=== PATIENT | female | born 1960 | race Caucasian/White ===

== ENCOUNTER → 2016-07-18 | Outpatient (CLI) | payer BC ==
--- NOTE | 2016-07-18 09:49 | CT ---
EXAMINATION TYPE: CT sinus wo con DATE OF EXAM: 07/18/2016 9:36 AM COMPARISON: NONE HISTORY: Patient has had sinus pressure for years CT DLP: 575.[address] of the paranasal sinuses was performed in the axial and coronal planes. Bone and soft tissue settings are submitted. The paranasal sinuses demonstrate normal aeration and development. The paranasal sinuses are free of air fluid level. Mild mucoperiosteal thickening involving maxilla ry sinuses. The osteal meatal units are patent bilaterally. The nasal septum is midline. No bony destructive changes are seen within the field of view. IMPRESSION: Mild mucoperiosteal thickening involving maxillary sinuses.
== END | disposition home or self-care (01) ==
LOC: RADCTMAIN 09:19
PROVIDERS: ATTEND Otolaryngology
DX: J34.89 Other specified disorders of nose and nasal sinuses (principal); J32.9 Chronic sinusitis, unspecified
CPT/HCPCS: 70486

== ENCOUNTER → 2016-07-25 | Outpatient (CLI) | payer BC | END | disposition home or self-care (01) | LOC: LABWHC1 10:07 | PROVIDERS: ATTEND Otolaryngology | DX: J30.9 Allergic rhinitis, unspecified (principal) | CPT/HCPCS: 36415 ==

== ENCOUNTER → 2017-07-24 | Outpatient (CLI) | payer BC ==
--- NOTE | 2017-07-25 08:34 | MM ---
Reason for exam: screening (asymptomatic). Last mammogram was performed 2 years and 2 months ago. History: Patient is postmenopausal. Family history of breast cancer in maternal grandmother. Took estrogen for 1 year 6 months beginning at age 33. Physical Findings: A clinical breast exam by your physician is recommended on an annual basis and results should be correlated with mammographic findings. MG Screening Mammo w CAD Bilateral CC and MLO view(s) were taken. Prior study comparison: June 08, 2015, bilateral MG screening mammo w CAD. January 08, 2012, [facility] DIGITAL RIGHT MAMMOGRAM w/CAD. The breast tissue is heterogeneously dense. This may lower the sensitivity of mammography. No significant changes when compared with prior studies. ASSESSMENT: Benign, BI-RAD 2 RECOMMENDATION: Routine screening mammogram of both breasts in 1 year.
== END | disposition home or self-care (01) ==
LOC: RADMAMWWP 14:51
PROVIDERS: ATTEND Family Medicine
DX: Z12.31 Encounter for screening mammogram for malignant neoplasm of breast (principal)
CPT/HCPCS: 77067

== ENCOUNTER 2018-08-14 20:38 | Observation (INO) | payer BC ==
[2018-08-14 21:40] LABS: Basophils # (A) 0.1 k/uL (0-0.2); Basophils % (A) 1 %; Eosinophils # (A) 0.3 k/uL (0-0.7); Eosinophils % (A) 3 %; HCT 43.8 % (34.0-46.0); HGB 14.8 gm/dL (11.4-16.0); Lymphocytes # (A) 4.3 k/uL (1.0-4.8); Lymphocytes % (A) 43 %; MCH 29.4 pg (25.0-35.0); MCHC 33.7 g/dL (31.0-37.0); MCV 87.2 fL (80.0-100.0); Monocytes # (A) 0.5 k/uL (0-1.0); Monocytes % (A) 5 %; Neutrophils # (A) 4.5 k/uL (1.3-7.7); Neutrophils % (A) 45 %; Platelet Count 260 k/uL (150-450); RBC 5.03 m/uL (3.80-5.40); RDW 14.6 % (11.5-15.5); WBC 9.9 k/uL (3.8-10.6)
--- NOTE | 2018-08-14 21:42 | ED ---
General Adult HPI - General Chief complaint: Chest Pain Stated complaint: Chest pain Time Seen by Provider: 08/14/18 20:50 Source: patient Mode of arrival: ambulatory Limitations: no limitations - History of Present Illness Initial comments: Dictation was produced using [employer] dictation software. please excuse any grammatical, word or spelling errors. Chief Complaint: 58-year-old female past medical history dyslipidemia, arthritis and sleep apnea presents with chest pain. History of Present Illness: 58-year-old female presents with chest pain 3 hours. She states she's had symptoms since yesterday. Reports that the pain is a pressure-like sensation over her sternum with radiation down to her left shoulder. Patient denies any cardiac history. Denies ever seeing visual presentation manager in the past. Denies any history of coronary disease. Patient was at dinner and was convinced by her daughter to come to the emergency department for medical evaluation. Patient reports having family history of cardiac disease. Eyes any cough. Patient otherwise has been feeling normal. Denies any exacerbating or mitigating factors. No associated nausea or vomiting. No diaphoresis. The ROS documented in this emergency department record has been reviewed and confirmed by me. Those systems with pertinent positive or negative responses have been documented in the HPI. All other systems are other negative and/or noncontributory. PHYSICAL EXAM: General Impression: Alert and oriented x3, not in acute distress HEENT: Normocephalic atraumatic, extra-ocular movements intact, pupils equal and reactive to light bilaterally, mucous membranes moist. Cardiovascular: Heart regular rate and rhythm, S1&S2 audible, no murmurs, rubs or gallops Chest: Lungs clear to auscultation bilaterally, no rhonchi, no wheeze, no rales Abdomen: Bowel sounds present, abdomen soft, non-tender, non-distended, no organomegaly Musculoskeletal: Pulses present and equal in all extremities, no peripheral edema Motor: no focal deficits noted Neurological: CN II-XII grossly intact, no focal motor or sensory deficits noted Skin: Intact with no visualized rashes Psych: Normal affect and mood ED course: 58-year-old female presents with atypical chest pain with typical features. Upon arrival shows blood pressure 180/85, rest of vital signs within normal limits. Given patient's age and HPI there is concern for cardiac process. Chest pain wo rkup was performed. Laboratory evaluation obtained. CBC, coag panel is unremarkable. Metabolic panel is negative. Cardiac enzymes negative. Chest x- ray shows no acute processes. Patient given aspirin. Patient reevaluated and found to be in stable medical condition. She does report minor chest pressure symptoms the last several seconds while in the emergency department. Patient to be admitted observation for serial troponins. Patient case discussed with Dr. Mustafa. EKG interpretation: Ventricular rate 70, normal sinus rhythm, WI interval 184, care is 100, QTC 455. No WI prolongation, no QTC prolongation, no ST or T-wave changes noted. - Related Data Home Medications Medication Instructions Recorded Confirmed Aspirin EC [Ecotrin Low Dose] 162 mg PO DAILY 08/14/18 08/14/18 Lisinopril [Zestril] 5 mg PO HS 08/14/18 08/14/18 Allergies Allergy/AdvReac Type Severity Reaction Status Date / Time morphine Allergy Rash/Hives, Verified 08/14/18 21:26 HALLUCINATIONS banana AdvReac Nausea & Verified 08/14/18 21:26 Vomiting Review of Systems ROS Statement: Those systems with pertinent positive or pertinent negative responses have been documented in the HPI. ROS Other: All systems not noted in ROS Statement are negative. Past Medical History Past Medical History: Hyperlipidemia, Osteoarthritis (OA), Sleep Apnea/CPAP/BIPAP Additional Past Medical History / Comment(s): 06/15/14 Pt admitted to floor s/p Total R knee. Other HX: RECENT HTN RX PRESCRIBED, PLANS TO START AFTER SURG. USES C-PAP. History of Any Multi-Drug Resistant Organisms: None Reported Past Surgical History: Cholecystectomy, Hysterectomy, Joint Replacement, Orthopedic Surgery, Tonsillectomy, Tubal Ligation Additional Past Surgical History / Comment(s): 06/15/14 Total R knee arthroplasty. SETH SCOPE OF KNEES; SETH THUMB SURG; NASAL/SINUS SURG; RECONSTRUCTION RT KNEE Past Anesthesia/Blood Transfusion Reactions: Postoperative Nausea & Vomiting (PONV) Past Psychological History: No Psychological Hx Reported Smoking Status: Never smoker Past Alcohol Use History: Rare Past Drug Use History: None Reported - Past Family History Father Family Medical History: Cancer General Exam Limitations: no limitations Course Vital Signs 08/14/18 08/14/18 20:39 22:00 Temperature 98.0 F Pulse Rate 74 63 Respiratory 18 16 Rate Blood Pressure 180/85 150/83 O2 Sat by Pulse 98 97 Oximetry Medical Decision Making - Lab Data Result diagrams: 08/14/18 21:06 08/14/18 21:06 Lab Results 08/14/18 08/14/18 08/14/18 Range/Units 21:06 21:06 21:06 WBC 9.9 (3.8-10.6) k/uL RBC 5.03 (3.80-5.40) m/uL Hgb 14.8 (11.4-16.0) gm/dL Hct 43.8 (34.0-46.0) % MCV 87.2 (80.0-100.0) fL MCH 29.4 (25.0-35.0) pg MCHC 33.7 (31.0-37.0) g/dL RDW 14.6 (11.5-15.5) % Plt Count 260 (150-450) k/uL Neutrophils % 45 % Lymphocytes % 43 % Monocytes % 5 % Eosinophils % 3 % Basophils % 1 % Neutrophils # 4.5 (1.3-7.7) k/uL Lymphocytes # 4.3 (1.0-4.8) k/uL Monocytes # 0.5 (0-1.0) k/uL Eosinophils # 0.3 (0-0.7) k/uL Basophils # 0.1 (0-0.2) k/uL PT 9.8 (9.0-12.0) sec INR 0.9 (<1.2) APTT 23.0 (22.0-30.0) sec Sodium 140 (137-145) mmol/L Potassium 4.0 (3.5-5.1) mmol/L Chloride 105 (98-107) mmol/L Carbon Dioxide 24 (22-30) mmol/L Anion Gap 11 mmol/L BUN 13 (7-17) mg/dL Creatinine 0.66 (0.52-1.04) mg/dL Est GFR (CKD-EPI)AfAm >90 (>60 ml/min/1.73 sqM) Est GFR (CKD-EPI)NonAf >90 (>60 ml/min/1.73 sqM) Glucose 105 H (74-99) mg/dL Calcium 9.7 (8.4-10.2) mg/dL Magnesium 1.9 (1.6-2.3) mg/dL Total Bilirubin 0.5 (0.2-1.3) mg/dL AST 19 (14-36) U/L ALT 19 (9-52) U/L Alkaline Phosphatase 101 (38-126) U/L Troponin I (0.000-0.034) ng/mL Total Protein 7.7 (6.3-8.2) g/dL Albumin 4.7 (3.5-5.0) g/dL 08/14/18 Range/Units 21:06 WBC (3.8-10.6) k/uL RBC (3.80-5.40) m/uL Hgb (11.4-16.0) gm/dL Hct (34.0-46.0) % MCV (80.0-100.0) fL MCH (25.0-35.0) pg MCHC (31.0-37.0) g/dL RDW (11.5-15.5) % Plt Count (150-450) k/uL Neutrophils % % Lymphocytes % % Monocytes % % Eosinophils % % Basophils % % Neutrophils # (1.3-7.7) k/uL Lymphocytes # (1.0-4.8) k/uL Monocytes # (0-1.0) k/uL Eosinophils # (0-0.7) k/uL Basophils # (0-0.2) k/uL PT (9.0-12.0) sec INR (<1.2) APTT (22.0-30.0) sec Sodium (137-145) mmol/L Potassium (3.5-5.1) mmol/L Chloride (98-107) mmol/L Carbon Dioxide (22-30) mmol/L Anion Gap mmol/L BUN (7-17) mg/dL Creatinine (0.52-1.04) mg/dL Est GFR (CKD-EPI)AfAm (>60 ml/min/1.73 sqM) Est GFR (CKD-EPI)NonAf (>60 ml/min/1.73 sqM) Glucose (74-99) mg/dL Calcium (8.4-10.2) mg/dL Magnesium (1.6-2.3) mg/dL Total Bilirubin (0.2-1.3) mg/dL AST (14-36) U/L ALT (9-52) U/L Alkaline Phosphatase (38-126) U/L Troponin I <0.012 (0.000-0.034) ng/mL Total Protein (6.3-8.2) g/dL Albumin (3.5-5.0) g/dL Disposition Clinical Impression: Chest pain Disposition: ADMITTED IP TO THIS HOSP Condition: Fair Referrals: Renato Mustafa MD [Primary Care Provider] - 1-2 days Decision Time: 23:31
--- NOTE | 2018-08-14 21:49 | XR ---
EXAMINATION TYPE: XR chest 2V DATE OF EXAM: 08/14/2018 COMPARISON: Chest x-ray May 27, 2014. HISTORY: Chest pain and shortness of breath today. TECHNIQUE: Frontal and lateral views of the chest are obtained. FINDINGS: There is chronic parenchymal change without suspicious new focal air space opacity, pleura l effusion, or pneumothorax seen. The cardiac silhouette size is stable and upper limits of normal. The osseous structures are intact. Overlying EKG leads are now seen. IMPRESSION: No acute cardiopulmonary process. No significant change from prior.
[2018-08-14 21:53] LABS: ALT 19 U/L (9-52); AST 19 U/L (14-36); Albumin 4.7 g/dL (3.5-5.0); Alkaline Phosphatase 101 U/L (38-126); Anion Gap 11 mmol/L; Blood Urea Nitrogen 13 mg/dL (7-17); Calcium 9.7 mg/dL (8.4-10.2); Carbon Dioxide 24 mmol/L (22-30); Chloride 105 mmol/L (98-107); Glucose 105 mg/dL (74-99); Magnesium 1.9 mg/dL (1.6-2.3); Sodium 140 mmol/L (137-145); Total Bilirubin 0.5 mg/dL (0.2-1.3); Total Protein 7.7 g/dL (6.3-8.2)
[2018-08-14 22:01] LABS: INR 0.9 (<1.2); Prothrombin Time 9.8 sec (9.0-12.0)
[2018-08-14] MEDS ORDERED: ASPIRIN 81 MG PO STA (23:30)
[2018-08-14] MEDS ORDERED: NITROGLYCERIN SL TABS 0.4 MG TAB SUBLINGUAL PRN (23:32)
[2018-08-15 03:33] LABS: Cholesterol 297 mg/dL (<200); HDL Cholesterol 60 mg/dL (40-60); LDL Cholesterol,Calculated 189 mg/dL (0-99); Triglycerides 240 mg/dL (<150)
--- NOTE | 2018-08-15 07:43 | P.HPIM ---
History of Present Illness H&P Date: 08/15/18 Chief Complaint: Sternal chest pain This is history and physical an 58-year-old white female with known history of hypertension who for the last several weeks has been complaining of substernal chest pain. This pain has become more frequent. No nausea vomiting or diaphoresis stated however there is worsening belching associated with pain. Because of the frequency and intensity, she was evaluated in the emergency room for appropriate admission to rule out myocardial infarction. She is a for many years and a nonsmoker. Review of Systems Constitutional: Denies chills, Denies fever Eyes: denies blurred vision, denies pain Ears, nose, mouth and throat: Denies headache, Denies sore throat Cardiovascular: Reports chest pain, Denies leg edema, Denies orthopnea, Denies paroxysmal nocturnal dyspnea, Denies rapid heart beat Respiratory: Denies cough Gastrointestinal: Denies abdominal pain, Denies diarrhea, Denies nausea, Denies vomiting Genitourinary: Denies dysuria, Denies hematuria Musculoskeletal: Denies myalgias Past Medical History Past Medical History: Hyperlipidemia, Hypertension, Osteoarthritis (OA), Sleep Apnea/CPAP/BIPAP Additional Past Medical History / Comment(s): Uses C-pap at home. History of Any Multi-Drug Resistant Organisms: None Reported Past Surgical History: Cholecystectomy, Hysterectomy, Joint Replacement, Orthopedic Surgery, Tonsillectomy, Tubal Ligation Additional Past Surgical History / Comment(s): Total R knee arthroplasty. SETH SCOPE OF KNEES; SETH THUMB SURG; NASAL/SINUS SURG; RECONSTRUCTION RT KNEE, sinus sx, total hysterectomy Past Anesthesia/Blood Transfusion Reactions: Postoperative Nausea & Vomiting (PONV) Past Psychological History: No Psychological Hx Reported Additional Psychological History / Comment(s): Pt lives independently. Does ADL's independently and drives herself. Smoking Status: Never smoker Past Alcohol Use History: Rare Past Drug Use History: None Reported - Past Family History Mother Family Medical History: CVA/TIA Additional Family Medical History / Comment(s): Mother of "mini-strokes in brain" Father Family Medical History: Cancer Medications and Allergies Home Medications Medication Instructions Recorded Confirmed Type Aspirin EC [Ecotrin Low Dose] 162 mg PO DAILY 08/14/18 08/14/18 History Lisinopril [Zestril] 5 mg PO HS 08/14/18 08/14/18 History Allergies Allergy/AdvReac Type Severity Reaction Status Date / Time morphine Allergy Rash/Hives, Verified 08/14/18 21:26 HALLUCINATIONS banana AdvReac Nausea & Verified 08/14/18 21:26 Vomiting Physical Exam Vitals: Vital Signs Temp Pulse Pulse Resp BP BP Pulse Ox 08/15/18 07:13 96 08/15/18 07:10 97.8 F 63 18 156/77 95 08/15/18 04:00 98.5 F 61 16 143/77 97 08/15/18 03:18 16 08/15/18 00:48 16 08/15/18 00:19 98.0 F 63 16 167/79 99 08/14/18 23:30 74 16 130/62 98 08/14/18 22:00 63 16 150/83 97 08/14/18 20:39 98.0 F 74 18 180/85 98 Intake and Output 08/14/18 08/15/18 08/15/18 22:59 06:59 14:59 Other: Voiding Method Toilet # Voids 1 Weight 104.326 kg - Constitutional General appearance: no acute distress - EENT Eyes: EOMI - Neck Neck: no lymphadenopathy - Respiratory Respiratory: bilateral: CTA - Cardiovascular Rhythm: regular Heart sounds: normal: S1, S2 Abnormal Heart Sounds: no S3 Gallop - Gastrointestinal General gastrointestinal: soft, no tenderness - Integumentary Integumentary: no cyanotic, normal - Neurologic Neurologic: CNII-XII intact - Psychiatric Psychiatric: A&O x's 3, appropriate affect, intact judgment & insight Results CBC & Chem 7: 08/14/18 21:06 08/14/18 21:06 Labs: Abnormal Lab Results - Last 24 Hours (Table) 08/14/18 08/15/18 Range/Units 21:06 02:52 Glucose 105 H (74-99) mg/dL Triglycerides 240 H (<150) mg/dL Cholesterol 297 H (<200) mg/dL LDL Cholesterol, Calc 189 H (0-99) mg/dL Thrombosis Risk Factor Assmnt - Choose All That Apply Any of the Below Risk Factors Present?: Yes Each Factor Represents 1 point: Age 41-60 years, Obesity (BMI >25) Other Risk Factors: No Thrombosis Risk Factor Assessment Total Risk Factor Score: 2 Thrombosis Risk Factor Assessment Level: Low Risk Assessment and Plan (1) Chest pain Current Visit: Yes Status: Acute Code(s): R07.9 - CHEST PAIN, UNSPECIFIED SNOMED Code(s): 86520614 (2) Osteoarthritis Current Visit: No Status: Acute Code(s): M19.90 - UNSPECIFIED OSTEOARTHRITIS, UNSPECIFIED SITE SNOMED Code(s): 486175547 (3) Hyperlipidemia Current Visit: Yes Status: Acute Code(s): E78.5 - HYPERLIPIDEMIA, UNSPECIFIE D SNOMED Code(s): 89261384 Plan: Rule out myocardial infraction. Stress test versus cardiac catheterization given her overall symptomatology. Reconcile home medications. Question need to start statin and heparin. Await cardiology consultation. Otherwise, the patient is a full code. Time with Patient: Greater than 30
[2018-08-15] MEDS ORDERED: ASPIRIN 325 MG TAB PO SCH ×2 (09:00→10:15)
[2018-08-15] MEDS ORDERED: ASPIRIN 81 MG PO SCH (09:00)
[2018-08-15] MEDS ORDERED: ALPRAZolam 0.25 MG TAB PO PRN (10:11)
[2018-08-15] MEDS ORDERED: SODIUM CHLORIDE 0.9% 1,000 ML in EMPTY BAG 1 BAG IV ONE (10:11)
[2018-08-15] MEDS ORDERED: ALPRAZolam 0.5 MG TAB PO PRN (10:11)
[2018-08-15] MEDS: LISINOPRIL 10 MG TAB PO SCH (10:37)
[2018-08-15] MEDS ORDERED: LIDOCAINE 1% INJ 10MG/ML (20 ML MDV) ONE ×3 (11:11→13:21)
[2018-08-15] MEDS ORDERED: IV FLUID CONTINUATION 1,000 ML IV ONE (11:30)
[2018-08-15] MEDS ORDERED: MIDAZOLAM (PF) 2 MG/2 ML VIAL IV ONE (11:36)
[2018-08-15] MEDS ORDERED: LIDOCAINE 1% INJ 10MG/ML (20 ML MDV) SQ ONE (11:38)
[2018-08-15] MEDS: LIDOCAINE 1% INJ 10MG/ML (20 ML MDV) SQ ONE ×2 (11:45→13:03)
[2018-08-15] MEDS ORDERED: fentaNYL (PF) 50 MCG/ML 2 ML AMP ONE (11:46)
[2018-08-15] MEDS ORDERED: fentaNYL (PF) 50 MCG/ML 2 ML AMP IV ONE (11:47)
[2018-08-15] MEDS ORDERED: NITROGLYCERIN 1000MCG/10ML SYRINGE INTRACORON ONE (11:48)
--- NOTE | 2018-08-15 12:12 | P.CRDCN ---
History of Present Illness History of present illness: This is a pleasant 58-year-old female past medical history significant for hypertension, dyslipidemia, obstructive sleep apnea and obesity. 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 If necessary consultation secondary to chest discomfort. She has been feeling a tightness across her chest and upper anterior region from left to right side described as a band around her chest with some radiation to the left shoulder and left upper arm. Her symptoms been going off-and-on for the previous couple of weeks however have been increasing in frequency and intensity over the last couple of days. Specifically yesterday she felt the discomfort in her chest while she was walking out to feed her chickens and exerting herself. The symptoms would subside with rest and intensify with exertion. She denies associated shortness of breath, dizziness, nausea, vomiting, diaphoresis or palpitations. She is seen and examined resting comfortably in bed in no acute distress. She is currently chest pain-free. She states she has tried multiple different statins in the past for cholesterol management has been intolerant secondary to significant body and muscle aches. She also has noticed her blood pressures have been elevated at home. EKG reveals sinus mechanism with no acute ST or T wave abnormalities noted. Left axis deviation. Chest x-ray is negative for an acute cardiopulmonary process. Laboratory data reviewed, WBC 9.9, hemoglobin 14.8, platelets 260, sodium 140, potassium 4.0, creatinine 0.66, GFR greater than 90, magnesium 1.9, cardiac enzymes negative 3, LDL 189, HDL 60, triglycerides 240 and total cholesterol 297. Current cardiac medications include lisinopril 5 mg daily and aspirin 162 mg daily. At the time of my exam: CONSTITUTIONAL: Denies fever. Denies chills. EYES: Denies blurred vision. Denies vision changes. Denies eye pain. EARS, NOSE, MOUTH & THROAT: Denies headache. Denies sore throat. Denies ear pain. CARDIOVASCULAR: Denies chest pain. Denies shortness of breath. Denies orthopnea. Denies PND. Denies palpitations. RESPIRATORY: Denies cough. GASTROINTESTINAL: Denies abdominal pain. Denies diarrhea. Denies constipation. Denies nausea. Denies vomiting. MUSCULOSKELETAL: Denies myalgias. INTEGUMENTARY: Denies pruitis. Denies rash. NEUROLOGIC: Denies numbness. Denies tingling. Denies weakness. PSYCHIATRIC: Denies anxiety. Denies depression. ENDOCRINE: Denies fatigue. Denies weight change. Denies polydipsia. Denies polyurina. GENITOURINARY: Denies burning, hematuria or urgency with micturation. HEMATOLOGIC: Denies history of anemia. Denies bleeding. Blood pressure 156/77 heart rate 63 afebrile maintaining oxygen saturation on room air GENERAL: This is a 58-year-old female in no apparent distress at the time of my examination. Obese. HEENT: Head is atraumatic, normocephalic. Pupils are equal, round. Sclerae anicteric. Conjunctivae are clear. Mucous membranes of the mouth are moist. Neck is supple. There is no jugular venous distention. No carotid bruit is heard. LUNGS: Clear to auscultation no wheezes, rales or rhonchi. No chest wall tenderness is noted on palpation or with deep breathing. HEART: Regular rate and rhythm without murmurs, rubs or gallops. S1 and S2 heard. ABDOMEN: Soft, nontender. Bowel sounds are heard. No organomegaly noted. EXTREMITIES: No evidence of peripheral edema and no calf tenderness noted. VASCULAR: Radial and dorsalis pedis pulses palpated, no evidence of clubbing. NEUROLOGIC: Patient is awake, alert and oriented x3. ASSESSMENT Unstable angina Hypertension, uncontrolled Dyslipidemia, uncontrolled Sleep apnea and uses CPAP at home Obesity, BMI 36 PLAN Recommend proceeding with cardiac catheterization to assess for obstructive coronary artery disease. I have discussed the risks, benefits and alternative therapies for the above-mentioned procedure and for both sedation/analgesia as well as necessary blood product administration, if indicated, as they pertain to this patient. The patient has indicated understanding and acceptance of the risks and procedures discussed. Questions have been answered appropriately and she is agreeable to move forward with the above stated procedure. Lengthy discussion had with the patient regarding optimal cholesterol management. She is a candidate for [facility] laboratory data suggestive of heterozygous familial hypercholesterolemia. Increase lisinopril to 10 mg daily. Obtain 2-D echocardiogram and Doppler study to assess cardiac structure and function. Further recommendations to follow based upon clinical course. Thank you kindly for this consultation. Nurse Practitioner note has been reviewed, I agree with a documented findings and plan of care. Patient was seen and examined. Past Medical History Past Medical History: Hyperlipidemia, Hypertension, Osteoarthritis (OA), Sleep Apnea/CPAP/BIPAP Additional Past Medical History / Comment(s): Uses C-pap at home. History of Any Multi-Drug Resistant Organisms: None Reported Past Surgical History: Cholecystectomy, Hysterectomy, Joint Replacement, Orthopedic Surgery, Tonsillectomy, Tubal Ligation Additional Past Surgical History / Comment(s): Total R knee arthroplasty. SETH SCOPE OF KNEES; SETH THUMB SURG; NASAL/SINUS SURG; RECONSTRUCTION RT KNEE, sinus sx, total hysterectomy Past Anesthesia/Blood Transfusion Reactions: Postoperative Nausea & Vomiting (PONV) Past Psychological History: No Psychological Hx Reported Additional Psychological History / Comment(s): Pt lives independently. Does ADL's independently and drives herself. Smoking Status: Never smoker Past Alcohol Use History: Rare Past Drug Use History: None Reported - Past Family History Mother Family Medical History: CVA/TIA Additional Family Medical History / Comment(s): Mother of "mini-strokes in brain" Father Family Medical History: Cancer Medications and Allergies Home Medications Medication Instructions Recorded Confirmed Type Aspirin EC [Ecotrin Low Dose] 162 mg PO DAILY 08/14/18 08/14/18 History Lisinopril [Zestril] 5 mg PO HS 08/14/18 08/14/18 History Allergies Allergy/AdvReac Type Severity Reaction Status Date / Time morphine Allergy Rash/Hives, Verified 08/14/18 21:26 HALLUCINATIONS banana AdvReac Nausea & Verified 08/14/18 21:26 Vomiting Physical Exam Vitals: Vital Signs Temp Pulse Pulse Resp BP BP Pulse Ox 08/15/18 07:13 96 08/15/18 07:10 97.8 F 63 18 156/77 95 08/15/18 04:00 98.5 F 61 16 143/77 97 08/15/18 03:18 16 08/15/18 00:48 16 08/15/18 00:19 98.0 F 63 16 167/79 99 08/14/18 23:30 74 16 130/62 98 08/14/18 22:00 63 16 150/83 97 08/14/18 20:39 98.0 F 74 18 180/85 98 Intake and Output 08/14/18 08/15/18 08/15/18 22:59 06:59 14:59 Other: Voiding Method Toilet Toilet # Voids 1 1 Weight 104.326 kg Results 08/14/18 21:06 08/14/18 21:06 Cardiac Enzymes 08/14/18 08/14/18 08/15/18 Range/Units 21:06 21:06 02:52 AST 19 (14-36) U/L Troponin I <0.012 <0.012 (0.000-0.034) ng/mL 08/15/18 Range/Units 08:55 AST (14-36) U/L Troponin I <0.012 (0.000-0.034) ng/mL Coagulation 08/14/18 Range/Units 21:06 PT 9.8 (9.0-12.0) sec APTT 23.0 (22.0-30.0) sec Lipids 08/15/18 Range/Units 02:52 Triglycerides 240 H (<150) mg/dL Cholesterol 297 H (<200) mg/dL HDL Cholesterol 60 (40-60) mg/dL CBC 08/14/18 Range/Units 21:06 WBC 9.9 (3.8-10.6) k/uL RBC 5.03 (3.80-5.40) m/uL Hgb 14.8 (11.4-16.0) gm/dL Hct 43.8 (34.0-46.0) % Plt Count 260 (150-450) k/uL Comprehensive Metabolic Panel 08/14/18 Range/Units 21:06 Sodium 140 (137-145) mmol/L Potassium 4.0 (3.5-5.1) mmol/L Chloride 105 (98-107) mmol/L Carbon Dioxide 24 (22-30) mmol/L BUN 13 (7-17) mg/dL Creatinine 0.66 (0.52-1.04) mg/dL Glucose 105 H (74-99) mg/dL Calcium 9.7 (8.4-10.2) mg/dL AST 19 (14-36) U/L ALT 19 (9-52) U/L Alkaline Phosphatase 101 (38-126) U/L Total Protein 7.7 (6.3-8.2) g/dL Albumin 4.7 (3.5-5.0) g/dL Current Medications Generic Name Dose Route Start Last Admin Trade Name Freq PRN Reason Stop Dose Admin Alprazolam 0.25 mg 08/15/18 10:11 Xanax PO Q6HR PRN Mild Anxiety Alprazolam 0.5 mg 08/15/18 10:11 Xanax PO Q6HR PRN Moderate Anxiety Aspirin 325 mg 08/15/18 10:15 08/15/18 10:37 Aspirin PO 325 mg DAILY VÍCTOR Administration Sodium Chloride 1,000 ml/ IV 1,000 mls @ 104.326 mls/hr 08/15/18 10:11 08/15/18 10:37 Solution IV 08/15/18 19:46 104.326 mls/hr .Q9H36M ONE Administration 1 ML/KG/HR Lisinopril 10 mg 08/15/18 09:00 08/15/18 10:37 Zestril PO 10 mg DAILY VÍCTOR Administration Nitroglycerin 0.4 mg 08/14/18 23:32 Nitrostat SUBLINGUAL Q5M PRN Chest Pain Intake and Output 08/14/18 08/15/18 08/15/18 22:59 06:59 14:59 Other: Voiding Method Toilet Toilet # Voids 1 1 Weight 104.326 kg 08/14/18 21:06 08/14/18 21:06
[2018-08-15] MEDS ORDERED: PRASUGREL 10 MG TAB ONE (12:25)
[2018-08-15] MEDS ORDERED: PRASUGREL 10 MG TAB PO ONE (12:27)
[2018-08-15] MEDS ORDERED: BIVALIRUDIN BOLUS 250 MG/50 ML IV ONE (12:27)
[2018-08-15] MEDS ORDERED: BIVALIRUDIN 250 MG in SODIUM CHLORIDE 0.9% 50 ML IV ONE ×2 (12:28→13:09)
[2018-08-15] MEDS ORDERED: IOPAMIDOL-370 125ML BTL INJ ONE (12:31)
[2018-08-15] MEDS: NITROGLYCERIN 1000MCG/10ML SYRINGE INTRACORON ONE ×2 (12:49→13:14)
[2018-08-15] MEDS ORDERED: IOPAMIDOL-370 100ML BTL INJ ONE ×3 (13:00→13:23)
[2018-08-15] MEDS ORDERED: LIDOCAINE 1% INJ 10MG/ML (10 ML MDV) SQ ONE (13:22)
[2018-08-15] MEDS ORDERED: ZOLPIDEM 5 MG TAB PO PRN (13:45)
[2018-08-15] MEDS ORDERED: NITROGLYCERIN SL TABS 0.4 MG TAB SUBLINGUAL PRN (13:45)
[2018-08-15] MEDS ORDERED: RX INFO: IV CONTRAST WAS GIVEN 1 EACH MISC MISCELLANE PRN (13:45)
[2018-08-15] MEDS ORDERED: MAG HYDROX/AL HYDROX/SIMETH 30 ML CUP PO PRN (13:45)
[2018-08-15] MEDS ORDERED: ATROPINE SULFATE 0.1 MG/ML 10ML SYRINGE IV PRN (13:45)
[2018-08-15] MEDS ORDERED: SODIUM CHLORIDE 0.9% 1,000 ML IV SCH (13:45)
[2018-08-15 15:14] VITALS: RESP 16
--- NOTE | 2018-08-15 15:31 | CC ---
CARDIAC CATHETERIZATION REPORT Mrs Sheriff is a 58-year-old female who was admitted to the hospital with a complaint of increasing chest discomfort with minimal activities over the last 2 weeks and the pain was getting worse. She came to the emergency room and subsequently was admitted. Initial EKG was normal. Second EKG showed mild T-wave inversions in V1 and V2. Cardiac enzymes are normal. The patient had a significantly elevated lipids with LDL level of 189. In view of the very classical history suggestive of angina, patient was recommended to have a cardiac catheterization for definitive diagnosis. PROCEDURE: The right groin was prepped and draped in the usual manner and the skin was infiltrated with 2% Xylocaine. The right femoral artery was entered using Seldinger technique. A #6-Japanese sheath was placed in. Selective coronary angiography was then performed in multiple projections. Left ventricular pressures were obtained. The patient tolerated the procedure well. Total sedation time was 22 minutes. MMODL / IJN: [id number] /
--- NOTE | 2018-08-15 16:31 | CC ---
CARDIAC CATHETERIZATION REPORT ADDENDUM (CONTINUATION) OF CARDIAC CATHETERIZATION: Left ventricular pressures were obtained. The left ventricular end-diastolic pressure was 8-12 mmHg prior to angiography. No gradient is noted across the aortic valve. Left main coronary artery is normal and patent. LAD is a good-caliber blood vessel and the proximal LAD has a 99% stenosis after the origin of the diagonal branch. The mid LAD has another area of 90% stenosis. The diagonal branch itself is a good-caliber blood vessel that has 80% stenosis. Circumflex coronary artery is a good-caliber blood vessel. After the origin of the obtuse marginal branch, circumflex coronary artery has a 90% stenosis. The right coronary artery has mild disease in its proximal portion of about 30% to 40% stenosis. RECOMMENDATIONS: Films were reviewed with Dr. Molina. In view of the significant coronary artery disease, we will consider stent to the LAD, diagonal and obtuse marginal branches. MMODL / IJN: [id number] /
[2018-08-15] MEDS: EZETIMIBE 10 MG TAB PO SCH (17:23)
--- NOTE | 2018-08-15 19:58 | PTCA ---
PERCUTANEOUSTRANS CORORONARY ANGIOGRAPHY Mrs. Sheriff is a 58-year-old female known history of hypertension who presented with symptoms of unstable angina with EKG changes. She underwent cardiac catheterization by Dr. Dotson and was found to have critical stenosis involving the proximal LAD, mid LAD, 1st diagonal branch as well as the left circumflex. Recommendation was made regarding coronary angioplasty and stenting. The procedure as well as risks and complications were discussed with the patient who is in full understanding and agreement. PROCEDURE: A 6-Fijian FR4 guiding catheter was introduced into the system after cannulating the left main, a 0.014 balanced medium weight J-wire was advanced in position in the first diagonal branch. Subsequently another 0.014 balanced medium weight J-wire was advanced and positioned in the distal LAD. Subsequently a 2.5 x 12 mm Trek balloon was advanced and inflation in mid and proximal LAD was performed and subsequently the balloon was removed and a 2.75 x 18 mm Xience Cleopatra stent was deployed in the diagonal branch and postdilated at 16 atmospheres. Following that, the balloon was removed and a 2.5 x 18 mm Xience Cleopatra stent was advanced in the mid LAD and deployed and post dilated at 16 atmospheres. Following that, the balloon was removed and a 3.5 x 50 mm Xience Cleopatra stent was deployed in the proximal LAD and postdilated at 14 atmospheres. Following that, the balloon was removed and a 2.75 x 12 mm Xience Cleopatra was stent was deployed and in between the 2 stents of the LAD and was dilated at 16 atmospheres. After appropriate wait, the balloon was withdrawn back in the guiding catheter. Images were obtained, repeated. Those images reveal stable successful stenting. At that point, one of the BMW J-wire were was advanced into the left circumflex and positioned distally. Subsequently a 2.5 x 12 mm balloon trek was advanced and one inflation at 8 atmospheres was done. Following that, the balloon was removed and a 2.75 x 18 mm Xience Cleopatra stent was deployed. It was dilated at 16 atmospheres. After the last inflation, after appropriate wait, the balloon and the guidewire were withdrawn back in the guiding catheter. Images were obtained, repeated. Those images reveal stable successful stenting. At that point, the guiding catheter, the balloon and the guidewire removed. The sheath was removed. Hemostasis was obtained with deployment of Angio-Seal. There was no immediate complication. Patient was returned to his room in stable condition. Of note, the patient had chest discomfort and EKG changes with the inflation that resolved at the end the procedure. She received Angiomax per protocol as well as oral loading dose of Effient. RESULTS: 1. Successful stenting of the proximal LAD with reduction of stenosis from 99% to 0%. 2. Successful stenting of the first diagonal branch with reduction of stenosis from 80% to 0%. 3. Successful stenting of the mid LAD with reduction of stenosis from 90% to 0%. 4. Successful stenting of the mid left circumflex with reduction of stenosis from 99% to 0%. RECOMMENDATION: Patient will be continued on aspirin, Effient, beta baltazar, and SAMANTHA inhibitor. SHE IS ALLERGIC TO STATIN and attempt to put her on a PCS K9 inhibitor will be initiated. Those findings and recommendations were discussed with the patient and her family and they are in full understanding and agreement. Duration of procedure: 59 minutes. MMSYBILL / MARCELON: [id number] /
[2018-08-15] MEDS: METOPROLOL TARTRATE 25 MG TAB PO SCH (20:31)
[2018-08-16 08:42] LABS: Anion Gap 11 mmol/L; Blood Urea Nitrogen 14 mg/dL (7-17); Calcium 9.3 mg/dL (8.4-10.2); Carbon Dioxide 23 mmol/L (22-30); Chloride 107 mmol/L (98-107); Glucose 103 mg/dL (74-99); Potassium 4.1 mmol/L (3.5-5.1); Sodium 141 mmol/L (137-145)
[2018-08-16] MEDS: METOPROLOL TARTRATE 25 MG TAB PO SCH (08:52)
[2018-08-16] MEDS: LISINOPRIL 10 MG TAB PO SCH (08:52)
[2018-08-16] MEDS: EZETIMIBE 10 MG TAB PO SCH (08:52)
[2018-08-16 08:56] VITALS: TEMP 98.6
[2018-08-16] MEDS ORDERED: PRASUGREL 10 MG TAB PO SCH (09:00)
[2018-08-16] MEDS ORDERED: ASPIRIN 81 MG PO SCH ×2 (09:00)
--- NOTE | 2018-08-16 09:12 | PN ---
PROGRESS NOTE Mrs. Sheriff is a 58-year-old female who presented with unstable angina and underwent cardiac catheterization yesterday and was found to have severe coronary disease involving the LAD, diagonal branch as well as the left circumflex. She underwent stenting of the LAD, diagonal branch and left circumflex. She is doing well this morning. Her breathing is stable. She is denying any symptoms of chest discomfort. She has mild discomfort in the right groin. She has been ambulating without any dyspnea. She denies any dizziness or palpitation. She denies any nausea. She continues to be at this time on aspirin once a day, Zetia 10 mg daily, lisinopril 10 mg daily, metoprolol tartrate 25 mg twice a day, Effient 10 mg daily. PHYSICAL EXAMINATION: Blood pressure 137/80 with the heart rate in the 70s. LUNGS: Clear. HEART: Regular rate and rhythm. S1, S2. No S3. No rub. ABDOMEN: Soft, nontender. Positive bowel sounds. No organomegaly. RIGHT GROIN: No hematoma. No bruit. No pulsatile mass. EKG revealed no acute changes. IMPRESSION: 1. Status post multivessel stenting, stable. 2. Hypertension. 3. Hyperlipidemia, intolerant to statin. RECOMMENDATION: From the cardiac standpoint, will increase her activity. She should be able to be discharged home today and followed as an outpatient with Dr. Dotson. ERIK / CHRISTOPHE: [id number] /
--- NOTE | 2018-08-16 11:15 | ECHOF ---
Referral Reason:cp MEASUREMENTS -------- HEIGHT: 170.2 cm WEIGHT: 104.3 kg BP: 156/77 RVIDd: 2.7 cm (< 3.3) IVSd: 1.4 cm (0.6 - 1.1) LVIDd: 4.0 cm (3.9 - 5.3) LVPWd: 1.3 cm (0.6 - 1.1) IVSs: 1.8 cm LVIDs: 3.1 cm LVPWs: 1.7 cm LA Diam: 3.3 cm (2.7 - 3.8) LAESV Index (A-L): 24.16 ml/m Ao Diam: 3.6 cm (2.0 - 3.7) AV Cusp: 2.0 cm (1.5 - 2.6) MV EXCURSION: 14.924 mm (> 18.000) MV EF SLOPE: 66 mm/s (70 - 150) EPSS: 1.6 cm MV E José: 0.63 m/s MV DecT: 300 ms MV A José: 0.63 m/s MV E/A Ratio: 1.00 FINDINGS -------- Sinus rhythm. This was a technically adequate study. The left ventricular size is normal. There is moderate concentric left ventricular hypertrophy. O verall left ventricular systolic function is normal with, an EF between 60 - 65 %. The right ventricle is normal in size. Normal LA size by volume 22+/-6 ml/m2. The right atrium is normal in size. Aneurysmal Interatrial septum. The aortic valve was not well visualized. The mitral valve is normal. The tricuspid valve appears structurally normal. The pulmonic valve was not well visualized. The aortic root size is normal. Normal inferior vena cava with normal inspiratory collapse consistent with estimated right atrial pre ssure of 5 mmHg. There is no pericardial effusion. CONCLUSIONS -------- 1. Sinus rhythm. 2. This was a technically adequate study. 3. The left ventricular size is normal. 4. There is moderate concentric left ventricular hypertrophy. 5. Overall left ventricular systolic function is normal with, an EF between 60 - 65 %. 6. The right ventricle is normal in size. 7. Normal LA size by volume 22+/-6 ml/m2. 8. The right atrium is normal in size. 9. Aneurysmal Interatrial septum. 10. The aortic valve was not well visualized. 11. The mitral valve is normal. 12. The tricuspid valve appears structurally normal. 13. The pulmonic valve was not well visualized. 14. The aortic root size is normal. 15. Normal inferior vena cava with normal inspiratory collapse consistent with estimated right atrial pressure of 5 mmHg. 16. There is no pericardial effusion. CHURN TENDER: Pastora Boston RDCS
[2018-08-16 14:46] VITALS: BP 122/70; PULSE 71
[2018-08-16 15:12] VITALS: BMI 36.7
--- NOTE | 2018-08-16 15:19 | P.DS ---
Providers Date of admission: 08/14/18 23:32 Expected date of discharge: 08/16/18 Attending physician: Renato Mustafa Consults: 08/14/18 23:32 Consult Physician Urgent Consulting Provider: Lamonte Rasmussen Consult Reason/Comments: chest pain Do you want consulting provider notified?: Yes 08/15/18 13:45 Consult Physician Routine Consulting Provider: [facility] Consult Reason/Comments: Post Interventional patient Do you want consulting provider notified?: Already Contacted Primary care physician: Renato Mustafa [facility] Course: 58-year-old female past medical history significant for hypertension, dyslipidemia, obstructive sleep apnea and obesity. She denies history of coronary artery disease and does not see a sustainability coach for any reason. If necessary consultation secondary to chest discomfort. She has been feeling a tightness across her chest and upper anterior region from left to right side described as a band around her chest with some radiation to the left shoulder and left upper arm. Her symptoms been going off-and-on for the previous couple of weeks however have been increasing in frequency and intensity over the last couple of days. Specifically yesterday she felt the discomfort in her chest while she was walking out to feed her chickens and exerting herself. The symptoms would subside with rest and intensify with exertion. She denies associated shortness of breath, dizziness, nausea, vomiting, diaphoresis or palpitations. She is seen and examined resting comfortably in bed in no acute distress. She is currently chest pain-free. She states she has tried multiple different statins in the past for cholesterol management has been intolerant secondary to significant body and muscle aches. She also has noticed her blood pressures have been elevated at home. EKG reveals sinus mechanism with no acute ST or T wave abnormalities noted. Left axis deviation. Chest x-ray is negative for an acute cardiopulmonary process. Laboratory data reviewed, WBC 9.9, hemoglobin 14.8, platelets 260, sodium 140, potassium 4.0, creatinine 0.66, GFR greater than 90, magnesium 1.9, cardiac enzymes negative 3, LDL 189, HDL 60, triglycerides 240 and total cholesterol 297. Current cardiac medications include lisinopril 5 mg daily and aspirin 162 mg daily. 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, Repatha was suggested and lisinopril was increased to 10 mg daily; 2-D echocardiogram was done to assess cardiac function; patient underwent cardiac catheterization and had multivessel stenting done; patient was recommended to continue aspirin and Effient beta blockers and marilin inhibitors Procedures: Cardiac catheterization with multivessel stenting Patient Condition at Discharge: Fair Plan - Discharge Summary Discharge Rx Participant: No New Discharge Prescriptions: New Prasugrel [Effient] 10 mg PO DAILY #90 tab Metoprolol Tartrate [Lopressor] 25 mg PO BID #180 tab Nitroglycerin Sl Tabs [Nitrostat] 0.4 mg SUBLINGUAL Q5M PRN #25 tab PRN Reason: Chest Pain Ezetimibe [Zetia] 10 mg PO DAILY #90 tab Continue Aspirin EC [Ecotrin Low Dose] 162 mg PO DAILY Changed Lisinopril [Zestril] 10 mg PO HS #0 Discharge Medication List Aspirin EC [Ecotrin Low Dose] 162 mg PO DAILY 08/14/18 [History] Ezetimibe [Zetia] 10 mg PO DAILY #90 tab 08/16/18 [Rx] Lisinopril [Zestril] 10 mg PO HS #0 08/16/18 [Rx] Metoprolol Tartrate [Lopressor] 25 mg PO BID #180 tab 08/16/18 [Rx] Nitroglycerin Sl Tabs [Nitrostat] 0.4 mg SUBLINGUAL Q5M PRN #25 tab 08/16/18 [Rx] Prasugrel [Effient] 10 mg PO DAILY #90 tab 08/16/18 [Rx] Follow up Appointment(s)/Referral(s): Renato Mustafa MD [Primary Care Provider] - 08/29/18 3:10 pm ( -earliest available appointment) Migue Dotson MD [STAFF PHYSICIAN] - 08/21/18 10:45 am (Sunday) Patient Instructions/Handouts: *[facility] - After Heart Catheterization - Marketing Sales Representative Instructions, Left Heart Catheterization (DC) Discharge Disposition: HOME SELF-CARE
== END 2018-08-16 15:42 | disposition home or self-care (01) ==
LOC: EC 20:38 → 1SOBS 23:32 → 3SCARD 08-15 14:03
PROVIDERS: ADMIT Family Medicine; ATTEND Family Medicine
DX: I25.110 Atherosclerotic heart disease of native coronary artery with unstable angina pectoris (principal); E78.5 Hyperlipidemia, unspecified; I10 Essential (primary) hypertension; M19.90 Unspecified osteoarthritis, unspecified site; E66.9 Obesity, unspecified; Z68.36 Body mass index [BMI] 36.0-36.9, adult; G47.33 Obstructive sleep apnea (adult) (pediatric); Z99.89 Dependence on other enabling machines and devices; Z79.82 Long term (current) use of aspirin; Z79.899 Other long term (current) drug therapy; Z88.5 Allergy status to narcotic agent; Z91.018 Allergy to other foods; Z90.49 Acquired absence of other specified parts of digestive tract; Z82.49 Family history of ischemic heart disease and other diseases of the circulatory system; Z80.9 Family history of malignant neoplasm, unspecified; Z82.3 Family history of stroke
CPT/HCPCS: 99285; 36415; 94760 ×2; 93005; 93306; 93458; 80061; 80053; 80048; 83735; 84484 ×2; 85025; 85610; 85730; 71046; G0378 ×3; C9600; C9601; C1769 ×3; C1760; C1887; C1725; C1894; C1874; J2001 ×2; J3010; J0583; Q9967 ×2; J2250

== ENCOUNTER → 2019-02-20 | Outpatient (CLI) | payer BC ==
--- NOTE | 2019-02-20 19:36 | CONS ---
CONSULTATION DATE OF SERVICE: 02/20/2019 This patient is a 58-year-old lady who has been evaluated in Sleep Center for obstructive sleep apnea-hypopnea syndrome. The patient has had a history of obstructive sleep apnea for about 12 years. She is using her CPAP equipment every night. Her weight has increased by around 40 pounds over the 12 years since her previous sleep study was done. I recommended CPAP pressure 12 years ago with 6 cm of water. According to the patient, her pressure in the machine is now higher than that. She sleeps from midnight until around 5 or 6 in the morning. Usually no problems with falling asleep. No TV in bedroom. She still wakes up from sleep around 3 times while using her CPAP machine. She may feel sleepy during the day. She may take naps in the late afternoon. [place] Sleepiness Scale is increased at 10. PAST MEDICAL HISTORY: Past medical history is positive for: 1. Hypertension. 2. Hyperlipidemia. 3. Nasal breathing problems. PAST SURGICAL HISTORY: 1. Surgery for nasal septum deviation. 2. Hysterectomy. 3. Cholecystectomy. 4. Right knee reconstruction surgery. 5. Left knee surgery. MEDICATIONS: 1. Aspirin. 2. Metoprolol. 3. Brilinta. 4. Lisinopril. 5. injections. SOCIAL HISTORY: Negative for smoking or using alcohol. FAMILY HISTORY: Hypertension, heart problems, hyperlipidemia, stroke, arthritis, sleep apnea, cancer, diabetes, restless legs. REVIEW OF SYSTEMS: Awakenings from sleep even while using her CPAP equipment, tiredness and sleepiness during the day. PHYSICAL EXAMINATION: GENERAL: A pleasant lady without distress. VITAL SIGNS: BP 123/78, HR 64, RR 16, height 5 feet 6-1/2 inches, weight 234.2 pounds, body mass index 37.2, temperature 98.1, oxygen saturation at room air 97%. HEENT: PERRLA, EOMI. Evaluation of oropharynx showed tongue protrudes midline. Extremely low position of soft palate. Mallampati IV. Significant restriction of nasal breathing. NECK: Supple. No JVD. Thyroid is not palpable. Neck measures 15-1/2 inches in circumference. LUNGS: Clear to percussion and to auscultation. Good air exchange. No wheezing or rhonchi. HEART: S1, S2 regular. No murmurs, gallops or rubs. ABDOMEN: Obese. EXTREMITIES: No clubbing or cyanosis. IMPROVEMENT ANALYST: Awake, alert, and oriented X3. Cranial nerves 2 to 7 intact. There is no fasciculation or atrophy. noted. No focal deficits observed. IMPRESSION: 1. Obstructive sleep apnea-hypopnea syndrome documented by polysomnogram 12 years ago. The patient continues to use her CPAP equipment but wakes up from sleep while using CPAP and feels sleepiness during the day. [place] Sleepiness Scale increased at 10. Extremely low position of soft palate, Mallampati IV, wide neck; obstructive sleep apnea-hypopnea syndrome. 2. Obesity; body mass index 37.2. Patient's weight has increased by around 40 pounds since previous sleep study. 3. Hypertension. 4. Hyperlipidemia. 5. Restriction of nasal breathing, status post nasal surgery. 6. Status post hysterectomy. 7. Status post tubal ligation. 8. Status post cholecystectomy. 9. Status post total right knee replacement. 10.Status post left knee surgery. PLAN: 1. CPAP titration for evaluation of effective CPAP pressure at the present time. The patient's weight has increased by around 40 pounds. She has awakenings from sleep while using her CPAP. Previous sleep study was done 12 years ago. 2. Losing weight. 3. Sleep hygiene with regular time in bed for at least 7-1/2 to 8 hours. 4. No driving if feeling any sleepiness. 5. Prescription for all necessary CPAP supplies, replacement of CPAP unit after sleep study is done. Thank you very much for referring this patient for reevaluation. Sincerely, Zachary Davidson MD, PhD, FAASM Diplomat of [employer] [employer] [employer] [facility] [place] MMODL / MARCELON: [id number] /
== END | disposition home or self-care (01) ==
LOC: SLEEP 13:27
PROVIDERS: ATTEND Internal Medicine
DX: G47.33 Obstructive sleep apnea (adult) (pediatric) (principal); I10 Essential (primary) hypertension; E78.5 Hyperlipidemia, unspecified; Z90.49 Acquired absence of other specified parts of digestive tract; Z90.710 Acquired absence of both cervix and uterus; Z99.89 Dependence on other enabling machines and devices; Z79.82 Long term (current) use of aspirin; Z79.899 Other long term (current) drug therapy; Z96.651 Presence of right artificial knee joint; Z98.890 Other specified postprocedural states
CPT/HCPCS: 99211

== ENCOUNTER → 2020-03-31 | Outpatient (CLI) | payer BC ==
--- NOTE | 2020-04-01 01:48 | SFUN ---
SLEEP CENTER FOLLOW UP NOTE DATE OF SERVICE: 03/31/2020 60-year-old lady who has been followed in Sleep Center for treatment of obstructive sleep apnea-hypopnea syndrome. Last time I saw patient was one year ago. After that she has had CPAP titration, received new machine, but because of the situation with Covid, she was not able to come for follow-up visit. Today, she had first visit actually 1 after starting using the new machine. She is using it without significant problems related to mask fitting, pressure or humidification. No snoring with the machine. [place] Sleepiness Scale today 6. I checked the CPAP unit. CPAP pressure 7 cm of water. Usage is 30/30 nights for more than 4 hours, average 6.5 hours per night. Leak is only 4 L/minute. Apnea-hypopnea index is only 1.0, which is absolutely perfect. MEDICATIONS: Metoprolol, Brilinta, lisinopril, aspirin. PHYSICAL EXAM: Patient in no distress, BP 157/80, HR 66, RR 15, weight 239, temp 98.4, oxygen saturation at room air 97%. Oropharynx extremely low position of soft palate, Mallampati 4. HEENT: PERRLA, EOMI, evaluation of oropharynx showed tongue protrudes midline. NECK: Supple, no JVD. Thyroid is not palpable. LUNGS: Clear to percussion and to auscultation. Good air exchange. No wheezing or rhonchi. HEART: S1, S2 regular. No murmurs, gallops, or rubs. ABDOMEN: Obese. Soft and nontender. Bowel sounds are present. No organomegaly appreciated. EXTREMITIES: No clubbing or cyanosis. CARDIAC CATH TECH: Awake, alert, and oriented X3. Cranial nerves 2 to 7 intact. There is no fasciculation or atrophy. noted. No focal deficits observed. IMPRESSION: 1. Obstructive sleep apnea-hypopnea syndrome. Patient demonstrated great compliance with treatment benefitting from treatment. 2. Obesity. 3. Hypertension. 4. Hyperlipidemia. 5. Restriction of nasal breathing status post nasal surgery. 6. Status post hysterectomy. 7. Status post tubal ligation. 8. Status post cholecystectomy. 9. Status post total right knee replacement. 10.Status post left knee surgery. PLAN: 1. Patient will continue to use PAP equipment every night for the whole night. 2. Sleep hygiene with regular time in bed for at least 7-1/2 to 8 hours. 3. Precautions related to driving. No driving if feeling sleepiness. 4. I will maintain all necessary prescription for PAP supplies including mask, tube, filters. 5. Watching weight. 6. No driving if feeling sleepiness. 7. Follow-up visit in 6 months or earlier if patient has any problems. Thank you very much for allowing me to participate in management of your patient. Sincerely, Zachary Davidson MD, PhD, FAASM Diplomat of [place] [employer] [employer] [facility] [place] MMODL / IJN: [id number] /
== END | disposition home or self-care (01) ==
LOC: SLEEP 15:57
PROVIDERS: ATTEND Internal Medicine
DX: G47.33 Obstructive sleep apnea (adult) (pediatric) (principal); E66.9 Obesity, unspecified; I10 Essential (primary) hypertension; E78.5 Hyperlipidemia, unspecified; Z99.89 Dependence on other enabling machines and devices; Z90.49 Acquired absence of other specified parts of digestive tract; Z96.651 Presence of right artificial knee joint; Z90.710 Acquired absence of both cervix and uterus; Z98.51 Tubal ligation status; Z98.890 Other specified postprocedural states

== ENCOUNTER 2021-07-02 19:21 | Emergency (ER) | payer BC ==
[2021-07-02 19:45] VITALS: TEMP 97.4
--- NOTE | 2021-07-02 21:31 | XR ---
EXAMINATION TYPE: XR chest 2V DATE OF EXAM: 07/02/2021 COMPARISON: 05/04/2019 HISTORY: 61-year-old female shortness of breath and hypertension TECHNIQUE: PA and lateral views FINDINGS: Heart normal size. Aorta within normal limits. Mild interstitial prominence and mild hyperinflation u nchanged. Some mild patchy density in the periphery of the left base. No other consolidation. No pleural effusi on. IMPRESSION: COPD and chronic appearing changes. There is some mild patchy atelectasis versus early infiltrate at the left base. Clinically correlate.
[2021-07-02] MEDS ORDERED: LORATADINE-PSEUDOEPH 5-120 MG 1 EACH TAB.ER.12H PO STA (22:13)
[2021-07-02] MEDS ORDERED: IPRATROPIUM-ALBUTEROL 3 ML NEB INHALATION STA (22:13)
[2021-07-02] MEDS ORDERED: DEXAMETHASONE SOD PHOSPHATE 10 MG/ML 1 ML VIAL IM STA (22:13)
[2021-07-02] MEDS ORDERED: LEVOFLOXACIN 500 MG TAB PO STA (22:14)
--- NOTE | 2021-07-02 22:48 | ED ---
ENT HPI - General Chief complaint: Allergic Reaction Stated complaint: High BP/Poss Allergic reaction Time Seen by Provider: 07/02/21 21:43 Source: patient, family, RN notes reviewed, old records reviewed Mode of arrival: wheelchair Limitations: no limitations - History of Present Illness Initial comments: This is a 61-year-old female DF for evaluation today. She presents today for evaluation of sore throat runny stuffy nose and postnasal drip cough and congestion and then began to notice her blood pressure elevated throughout the day. Has symptoms improving here in the ER. She just started on azithromycin antibiotic for sinus infection this is after she was on amoxicillin a week prior. Patient states she's been suffering with sinus issues for years and years has seen many ear nose and throat doctors with no improvement. He restarted other complaints MD complaint: sore throat -: hour(s) Location: nose, throat Severity: moderate Severity scale (1-10): 5 Quality: aching, dull Consistency: constant, intermittent, other (Though improving) Worsens with: swallowing, position, medication Context-Epistaxis: history of similar Associated Symptoms: sore throat, rhinorrhea - Related Data Home Medications Medication Instructions Recorded Confirmed Aspirin EC [Ecotrin Low Dose] 81 mg PO DAILY 08/14/18 05/04/19 Azelastine HCl 2 spray EA NOSTRIL HS 05/04/19 05/04/19 Rosuvastatin [Crestor] 20 mg PO DAILY 05/04/19 05/04/19 Ticagrelor [Brilinta] 90 mg PO BID 05/04/19 05/04/19 Previous Rx's Medication Instructions Recorded Metoprolol Tartrate [Lopressor] 25 mg PO BID #180 tab 08/16/18 Nitroglycerin Sl Tabs [Nitrostat] 0.4 mg SUBLINGUAL Q5M PRN #25 tab 08/16/18 lisinopriL [Zestril] 10 mg PO HS #0 08/16/18 Allergies Allergy/AdvReac Type Severity Reaction Status Date / Time morphine Allergy Rash/Hives, Verified 07/02/21 19:40 HALLUCINATIONS banana AdvReac Nausea & Verified 07/02/21 19:40 Vomiting Review of Systems ROS Statement: Those systems with pertinent positive or pertinent negative responses have been documented in the HPI. ROS Other: All systems not noted in ROS Statement are negative. Past Medical History Past Medical History: Hyperlipidemia, Hypertension, Osteoarthritis (OA), Sleep Apnea/CPAP/BIPAP Additional Past Medical History / Comment(s): Uses C-pap at home. History of Any Multi-Drug Resistant Organisms: None Reported Past Surgical History: Cholecystectomy, Heart Catheterization With Stent, Hysterectomy, Joint Replacement, Orthopedic Surgery, Tonsillectomy, Tubal Ligation Additional Past Surgical History / Comment(s): Total R knee arthroplasty. SETH SCOPE OF KNEES; SETH THUMB SURG; NASAL/SINUS SURG; RECONSTRUCTION RT KNEE, sinus sx, total hysterectomy Past Anesthesia/Blood Transfusion Reactions: Postoperative Nausea & Vomiting (PONV) Date of Last Stent Placement:: 07/2018 Past Psychological History: No Psychological Hx Reported Past Alcohol Use History: Rare Past Drug Use History: None Reported - Past Family History Mother Family Medical History: CVA/TIA Additional Family Medical History / Comment(s): Mother of "mini-strokes in brain" Father Family Medical History: Cancer General Exam Limitations: no limitations General appearance: alert, in no apparent distress Head exam: Present: atraumatic, normocephalic, normal inspection Eye exam: Present: normal appearance, PERRL, EOMI. Absent: scleral icterus, conjunctival injection, periorbital swelling ENT exam: Present: normal exam, mucous membranes moist Neck exam: Present: normal inspection. Absent: tenderness, meningismus, lymphadenopathy Respiratory exam: Present: normal lung sounds bilaterally. Absent: respiratory distress, wheezes, rales, rhonchi, stridor Cardiovascular Exam: Present: regular rate, normal rhythm, normal heart sounds. Absent: systolic murmur, diastolic murmur, rubs, gallop, clicks GI/Abdominal exam: Present: soft, normal bowel sounds. Absent: distended, tenderness, guarding, rebound, rigid Extremities exam: Present: normal inspection, full ROM, normal capillary refill. Absent: tenderness, pedal edema, joint swelling, calf tenderness Back exam: Present: normal inspection Neurological exam: Present: alert, oriented X3, CN II-XII intact Psychiatric exam: Present: normal affect, normal mood Skin exam: Present: warm, dry, intact, normal color. Absent: rash Course Vital Signs 07/02/21 19:40 Temperature 97.4 F L Pulse Rate 78 Respiratory 16 Rate Blood Pressure 166/93 O2 Sat by Pulse 98 Oximetry - Reevaluation(s) Reevaluation #1: 07/02/21 23:06 Medical record is reviewed Reevaluation #2: 07/02/21 23:07 Patient informed results and questions answered Reevaluation #3: 07/02/21 23:07 patient is without significant shortness of breath here in the ER continues to feel improved Medical Decision Making - Medical Decision Making 61 female to the emergency department for evaluation. Patient can be discharged home will change antibiotic for both sinus infection and cover pneumonia - EKG Data -: EKG Interpreted by Me (EKG is sinus rhythm 72 [place] 166 QRS 13 QTC 361) - Radiology Data Radiology results: report reviewed (Chest x-rays positive for pneumonia), image reviewed Disposition Clinical Impression: Allergic reaction to drug, Sinusitis, Community acquired pneumonia Disposition: HOME SELF-CARE Condition: Good Instructions (If sedation given, give patient instructions): Community Acquired Pneumonia (ED) Is patient prescribed a controlled substance at d/c from ED?: No Referrals: Renato Mustafa MD [Primary Care Provider] - 1-2 days
[2021-07-02 23:52] VITALS: BP 188/70; RESP 18
[2021-07-02 23:55] VITALS: PULSE 80
== END 2021-07-03 00:38 | disposition home or self-care (01) ==
LOC: EC 19:21
DX: J32.9 Chronic sinusitis, unspecified (principal); J18.9 Pneumonia, unspecified organism; T50.905A Adverse effect of unspecified drugs, medicaments and biological substances, initial encounter; I10 Essential (primary) hypertension; E78.5 Hyperlipidemia, unspecified; M19.90 Unspecified osteoarthritis, unspecified site; Z79.82 Long term (current) use of aspirin; Z79.899 Other long term (current) drug therapy
CPT/HCPCS: 94640; 93005; 71046; 99283; 96372; J1100

== ENCOUNTER 2021-09-20 05:51 | Day surgery (SDC) | payer BC ==
[2021-09-19 09:37] VITALS: BMI 38.0
[2021-09-20] MEDS ORDERED: ALPRAZolam 0.5 MG TAB PO PRN (06:01)
[2021-09-20] MEDS ORDERED: NITROGLYCERIN SL TABS 0.4 MG TAB SUBLINGUAL PRN ×2 (06:01→08:49)
[2021-09-20] MEDS ORDERED: ALPRAZolam 0.25 MG TAB PO PRN (06:01)
[2021-09-20] MEDS ORDERED: SODIUM CHLORIDE 0.9% 1,000 ML IV ONE (06:13)
[2021-09-20 06:32] LABS: Basophils # (A) 0.2 k/uL (0-0.2); Basophils % (A) 2 %; Eosinophils # (A) 0.5 k/uL (0-0.7); Eosinophils % (A) 5 %; HCT 42.7 % (34.0-46.0); HGB 14.2 gm/dL (11.4-16.0); Lymphocytes # (A) 3.9 k/uL (1.0-4.8); Lymphocytes % (A) 40 %; MCH 30.1 pg (25.0-35.0); MCHC 33.3 g/dL (31.0-37.0); MCV 90.2 fL (80.0-100.0); Mean Platelet Volume 6.9; Monocytes # (A) 0.5 k/uL (0-1.0); Monocytes % (A) 5 %; Neutrophils # (A) 4.5 k/uL (1.3-7.7); Neutrophils % (A) 46 %; Platelet Count 248 k/uL (150-450); RBC 4.74 m/uL (3.80-5.40); RDW 13.1 % (11.5-15.5); WBC 9.7 k/uL (3.8-10.6)
[2021-09-20 06:45] LABS: African American GFR (CKD) >90 (>60 ml/min/1.73 sqM); Anion Gap 12 mmol/L; Blood Urea Nitrogen 16 mg/dL (7-17); Calcium 9.6 mg/dL (8.4-10.2); Carbon Dioxide 22 mmol/L (22-30); Chloride 106 mmol/L (98-107); Glucose 115 mg/dL (74-99); Non-African American GFR(CKD) >90 (>60 ml/min/1.73 sqM); Sodium 140 mmol/L (137-145)
[2021-09-20 06:47] LABS: Potassium 4.6 mmol/L (3.5-5.1)
[2021-09-20] MEDS ORDERED: ASPIRIN 325 MG TAB PO ONE (07:00)
[2021-09-20] MEDS ORDERED: VERAPAMIL 2.5 MG/ML 2 ML AMP ONE (07:14)
[2021-09-20] MEDS ORDERED: HEPARIN SODIUM 1,000 UN/ML (10ML VL) ONE (07:14)
[2021-09-20] MEDS ORDERED: fentaNYL (PF) 50 MCG/ML 2 ML AMP ONE (07:15)
[2021-09-20] MEDS ORDERED: fentaNYL (PF) 50 MCG/ML 2 ML AMP IV ONE (07:28)
[2021-09-20] MEDS ORDERED: LIDOCAINE 1% INJ 10MG/ML (5 ML VIAL-PF) SQ ONE (07:34)
[2021-09-20] MEDS ORDERED: VERAPAMIL SYRINGE (5 MG/10 ML) INTRAARTER ONE (07:35)
[2021-09-20] MEDS ORDERED: MIDAZOLAM 2 MG/2 ML VIAL IV ONE (07:38)
[2021-09-20] MEDS: HEPARIN SODIUM 1,000 UN/ML (10ML VL) IV ONE ×4 (07:40→08:16)
[2021-09-20] MEDS ORDERED: CLOPIDOGREL 75 MG TAB ONE (07:51)
[2021-09-20] MEDS ORDERED: CLOPIDOGREL 75 MG TAB PO ONE (07:53)
[2021-09-20] MEDS ORDERED: IOPAMIDOL-370 125ML BTL INJ ONE (08:28)
[2021-09-20] MEDS ORDERED: IOPAMIDOL-370 100ML BTL INJ ONE (08:41)
[2021-09-20] MEDS ORDERED: ATROPINE SULFATE 0.1 MG/ML 10ML SYRINGE IV PRN (08:49)
[2021-09-20] MEDS ORDERED: ZOLPIDEM 5 MG TAB PO PRN (08:49)
[2021-09-20] MEDS ORDERED: MAG HYDROX/AL HYDROX/SIMETH 30 ML CUP PO PRN (08:49)
[2021-09-20] MEDS ORDERED: RX INFO: IV CONTRAST WAS GIVEN 1 EACH MISC MISCELLANE PRN (08:49)
[2021-09-20] MEDS ORDERED: SODIUM CHLORIDE 0.9% 1,000 ML in EMPTY BAG 1 BAG IV SCH (09:00)
[2021-09-20] MEDS: TICAGRELOR 90 MG TAB PO SCH (09:08)
[2021-09-20] MEDS: ASPIRIN 81 MG PO SCH (09:13)
[2021-09-20] MEDS: SODIUM CHLORIDE 0.9% 1,000 ML in EMPTY BAG 1 BAG IV SCH ×2 (09:14→19:49)
[2021-09-20] MEDS: METOPROLOL TARTRATE 25 MG TAB PO SCH ×2 (09:14→19:49)
[2021-09-20] MEDS ORDERED: lisinopriL 10 MG TAB PO SCH (21:00)
[2021-09-21] MEDS: SODIUM CHLORIDE 0.9% 1,000 ML in EMPTY BAG 1 BAG IV SCH (00:32)
[2021-09-21 07:16] LABS: African American GFR (CKD) >90 (>60 ml/min/1.73 sqM); Non-African American GFR(CKD) >90 (>60 ml/min/1.73 sqM)
[2021-09-21 07:29] VITALS: BP 128/81; PULSE 61; RESP 18; TEMP 97.6
--- NOTE | 2021-09-21 07:37 | P.PN ---
Subjective Progress Note Date: 09/21/21 PROGRESS NOTE The patient is a 61-year-old female with a known history of CAD, post- multivessel stenting who presented with discomfort and positive stress test, underwent cardiac catheterization was found to have significant stenosis in the ostium of the first diagonal branch. She underwent stenting of that segment with angioplasty of the LAD. She is doing well this morning, ambulating without difficulty. She denies any chest discomfort, dizziness or palpitations. She continues to be in sinus mechanism. She continues to be at this time on aspirin once a day , Zetia 10 mg daily, lisinopril 10 mg daily, metoprolol 25 mg twice a day, Brilinta 90 mg twice a day. PHYSICAL EXAMINATION: Blood pressure 128/81 heart rate 61 LUNGS: [Clear to auscultation] HEART: [Regular rate and rhythm, S1, S2. No S3. No systolic murmur] ABDOMEN: [Soft, nontender, no organomegaly] EXTREMETIES: [No edema, right radial pulse intact] LAB: Creatinine 0.68, EKG with no acute changes IMPRESSION: 1. Status post stenting of the ostium of the diagonal branch 2. Status post multivessel stenting in 2019 3. Hypertension 4. Hyperlipidemia intolerant to statin PLAN: The patient will be discharged home today, followed as an outpatient. She will continue on dual antiplatelets treatment for 6 months. She'll be followed in one week. Objective - Vital Signs Vital signs: Vital Signs Temp 97.6 F 09/21/21 07:28 Pulse 61 09/21/21 07:28 Resp 18 09/21/21 07:28 BP 128/81 09/21/21 07:28 Pulse Ox 96 09/21/21 01:31 FiO2 Intake & Output 09/20/21 09/21/21 09/21/21 18:59 06:59 18:59 Intake Total 700 Balance 700 Weight 108.3 kg Intake: IV 100 Oral 600 Other: Voiding Method Toilet # Voids 2 2 - Labs CBC & Chem 7: 09/20/21 06:15 09/21/21 06:39
[2021-09-21] MEDS: ASPIRIN 81 MG PO SCH (08:47)
[2021-09-21] MEDS: METOPROLOL TARTRATE 25 MG TAB PO SCH (08:47)
[2021-09-21] MEDS: TICAGRELOR 90 MG TAB PO SCH (08:47)
[2021-09-21] MEDS ORDERED: EZETIMIBE 10 MG TAB PO SCH (09:00)
--- NOTE | 2021-09-27 18:06 | P.CARDCATH ---
Date of Procedure: 09/21/21 Description of Procedure: Cardiac Catheterization: The patient is a 61-year-old female who has been complaining of progressive dyspnea, she has a known history of CAD and had an abnormal MPI. Recommendations were made regarding cardiac catheterization, the risks and the complications were discussed with the patient who is in full understanding and agreement. 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 Using Xylocaine Anesthesia and Seldinger technique, a 6-Turkish sheath was introduced in the right radial artery . Subsequently, selective coronary angiography was performed using a 5-Turkish 3.5 bend Vasiliy catheter. Multiple views of the coronary artery including hemiaxial views were obtained. The right Vasiliy catheter was used to cross the aortic valve and LVEDP was calculated. Following that, catheter and sheath were removed. Hemostasis was obtained with deployment of TR band . There was no immediate complication. Patient was returned to room in stable condition. Of note, the patient received a total of 5000 units of intravenous heparin as well as intra-arterial verapamil. There was no immediate complications. Findings: Left main: This is a size vessel, bifurcating into LAD and left circumflex, left main has no high-grade stenosis. LAD: This is a size vessel, reaching to the apex, giving rise to a large diagonal branch. The stented segment in the proximal LAD is patent, the ostium of the diagonal branch has 99% stenosis. There is a 30-40% plaque in the stented segment after the takeoff the diagonal branch. The mid diagonal branch stented segment is patent with no in-stent restenosis. Left circumflex: This is a nondominant vessel large in caliber, having rested to obtuse marginal branch. The left circumflex has mild intimal disease. RCA: This is a dominant vessel bifurcating to PDA and PLV. RCA has 20-30% plaque with no high-grade stenosis. Left Ventriculogram: Not performed Hemodynamics: There was no gradient across the aortic valve, LVEDP 16-18 mmHg. Conclusion: 1. Significant disease in the ostium of the first diagonal branch 2. Patent stent in the LAD and diagonal branch 3. Mild disease in the left circumflex 4. Mild disease in the RCA Recommendations: In view of the findings and the symptoms I have recommended to proceed with angioplasty and stenting of the diagonal branch. The procedure as well as the risks and the complications were discussed with the patient who was in full understanding and agreement.
--- NOTE | 2021-09-27 18:18 | P.CARDCATH ---
Date of Procedure: 09/21/21 Description of Procedure: PERCUTANEOUS TRANSLUMINAL CORONARY ANGIOPLASTY CLINICAL INFORMATION: The patient is a 61-year-old female with a known history of CAD we'll had progressive dyspnea, underwent cardiac catheterization and was found to have significant obstructive disease involving the ostium of the first diagonal branch. The procedure as well as the risks and the complications were discussed with the patient who was in full understanding and agreement. PROCEDURE: A 6 Mexican 3.75 EBU guiding catheter was introduced into the system. After cannulating the ostium of the left main, a 0.014 BMW wire was advanced across the lesion and positioned distally in the diagonal branch, following another wire was advanced in position in the distal LAD. Following that a 2.5 x 12 m Treck balloon was advanced and inflated at 12 atmosphere. Following that a 2.0 x 12 mm Treck was advanced to the mid LAD and positioned in the mid LAD. Following that a 3.0 x 12 mm Xience ethan point stent was deployed. It was dilated at 16. After removing the stent balloon the 2.5 x 12 mm balloon was positioned across the ostium of the LAD and one inflation for 20 seconds at 16 martir was done. Following that the balloon was removed and a 3.0 x 15 NC Treck balloon was advanced and the first diagonal branch and one inflation was done at 16 martir, after removing the balloon IVUS catheter was advanced in the LAD and images were performed. Following that a 3.25 x 15 mm NC Treck balloon was advanced to the mid LAD and inflation up to 14 martir were done. After the last inflation, after appropriate wait, the balloon and the guidewire were withdrawn back into the guiding catheter. Images were obtained and repeated. Those images reveal stable successful stenting. At that point, the guiding catheter, the balloon, and guidewire were removed. The sheath was removed. Hemostasis was obtained with deployment of a TR band. There were no immediate complications. The patient was returned to the room in stable condition. Of note, the patient received 3000 units of heparin as well as Brilinta. The ACT was followed. There was no immediate complications. The patient had EKG changes but no significant chest pain RESULTS: Successful stenting of the ostium of the first diagonal branch with reduction of stenosis from 99% to less than 5 % with angioplasty of the mid LAD. RECOMMENDATIONS: The patient will be continued on aspirin and Brilinta for at least 6 months with aggressive coronary risks modifications. The findings and recommendations were discussed with the patient and the family, they are in full understanding and agreement.
== END 2021-09-21 10:45 | disposition home or self-care (01) ==
LOC: CATHCVL 05:51 → 6NMEDSUR 08:39 → CATHCVL 09-21 10:45
PROVIDERS: ATTEND Internal Medicine Interventional Cardiology
DX: I25.10 Atherosclerotic heart disease of native coronary artery without angina pectoris (principal); I10 Essential (primary) hypertension; E78.2 Mixed hyperlipidemia; Z20.822 Contact with and (suspected) exposure to COVID-19; Z95.5 Presence of coronary angioplasty implant and graft; Z87.891 Personal history of nicotine dependence; Z79.899 Other long term (current) drug therapy; Z79.82 Long term (current) use of aspirin; Z88.6 Allergy status to analgesic agent; Z88.5 Allergy status to narcotic agent; Z88.8 Allergy status to other drugs, medicaments and biological substances; Z90.710 Acquired absence of both cervix and uterus; Z98.890 Other specified postprocedural states; Z90.89 Acquired absence of other organs; Z90.49 Acquired absence of other specified parts of digestive tract; Z96.659 Presence of unspecified artificial knee joint
CPT/HCPCS: 92978; 93458; 80048; 82565; 85025; 87635; C9600; C1769 ×3; C1887; C1725 ×3; C1894; C1753; C1874; J2250; J2001; J3010; J1644; Q9967 ×2

== ENCOUNTER → 2021-12-16 | Outpatient (CLI) | payer BC ==
[2021-12-16 19:07] LABS: ALT 30 U/L (8-44); AST 20 U/L (13-35); African American GFR (CKD) 100.3 (60.0-200.0); Albumin 4.5 g/dL (3.8-4.9); Albumin/Globulin Ratio 1.73 (1.60-3.17); Alkaline Phosphatase 95 U/L (41-126); Blood Urea Nitrogen 11.8 mg/dL (9.0-27.0); Calcium 9.6 mg/dL (8.7-10.3); Carbon Dioxide 25.4 mmol/L (20.0-27.5); Chloride 103 mmol/L (96-109); Chol/HDL Ratio 5.02 Ratio; Globulin 2.6 g/dL (1.6-3.3); Glucose 89 mg/dL (70-110); LDL Cholesterol,Calculated 141.6 mg/dL (0.0-131.0); Non-African American GFR(CKD) 86.5 (60.0-200.0); Potassium 4.7 mmol/L (3.5-5.5); Sodium 143 mmol/L (135-145); Total Protein 7.1 g/dL (6.2-8.2)
== END | disposition home or self-care (01) ==
LOC: LABWHC1 09:50
PROVIDERS: ATTEND Internal Medicine Interventional Cardiology
DX: E78.2 Mixed hyperlipidemia (principal)
CPT/HCPCS: 36415; 80053; 80061

== ENCOUNTER 2023-04-27 06:28 | Day surgery (SDC) | payer BC ==
[2023-04-27] MEDS ORDERED: LIDOCAINE 1% (10MG/ML) FOR IV START INTRADERMA PRN (06:55)
[2023-04-27] MEDS ORDERED: LACTATED RINGERS 1,000 ML IV SCH (06:55)
[2023-04-27] MEDS ORDERED: ONDANSETRON 4 MG/2 ML VIAL ONE (07:14)
[2023-04-27] MEDS ORDERED: PROPOFOL 10 MG/ML 20 ML VIAL IV ONE (07:17)
[2023-04-27 07:22] VITALS: RESP 16; TEMP 97.2
[2023-04-27 07:32] LABS: Glucose,Whole Blood 102 mg/dL (70-110)
--- NOTE | 2023-04-27 07:44 | P.PCN ---
Date of Procedure: 04/27/23 Procedure(s) Performed: Brief history: Patient is a pleasant 63-year-old white female scheduled for an elective upper endoscopy as well as colonoscopy as a part of evaluation of GERD and screening for colon cancer. She has strong family history of colon cancer diagnosed in her father, paternal grandfather, paternal uncle and brother between ages 50 and 60. Procedure performed: Esophagogastroduodenoscopy Colonoscopy with biopsy and snare polypectomy Preoperative diagnosis: GERD Screening for colon cancer. History of colon cancer Anesthesia: MAC Procedure: After informed consent was obtained from the patient was brought into the endoscopy unit and IV sedation was administered by anesthesia under continuous monitoring. Initially upper endoscopy was done. The Olympus GF 160 video endoscope was inserted inserted into the mouth and esophagus intubated without any difficulty and was gradually advanced into the stomach and duodenum and carefully examined. The bulb and second part of the duodenum appeared normal. The scope was then withdrawn into the stomach adequately insufflated with air and upon careful examination the antrum and body, cardia and fundus appeared normal. The scope was then withdrawn into the esophagus. The GE junction was located at 40 cm to the incisors. It appeared regular with 2 superficial erosions consistent with LA grade B reflux esophagitis.. Rest of the esophagus appeared normal. Patient tolerated the procedure well. At this time the patient continued to remain sedation. Initial digital rectal examination was normal. Olympus CF 160 video colonoscope was then inserted into the rectum and gradually advanced to the cecum without any difficulty. Careful examination was performed as the scope was gradually being withdrawn. The prep was excellent. The cecum, appeared normal. In the ascending colon there was a former limited polyp that was removed by cold biopsy. In the transverse colon there was a 7 mm polyp removed by snare polypectomy. In the descending colon there was a 5 mm polyp removed by cold snare polypectomy. Rest of the ascending colon, transverse colon, descending colon, sigmoid colon and rectum appeared normal. In the rectum there was a 3 mm polyp that was removed by cold biopsy. Retroflexion was performed in the rectum and no lesions were noted. Patient tolerated the procedure well. Impression: 1. Upper endoscopy revealed LA grade B reflux esophagitis 2. Colonoscopy revealed: a) 4 mm ascending colon polyp status post cold biopsy b) 7 mm transverse colon polyp status post cold snare polypectomy c) 5 millimeters descending colon polyp status post-cold snare polypectomy d) 3 mm rectal polyp status post cold biopsy Recommendations: Findings of this examination were discussed with the patient as well as her family. Start on Pepcid 20 mg twice daily and follow antireflux measures for reflux esophagitis. She was advised to follow with the biopsy results. Recommend repeat colonoscopy in 3 years.
[2023-04-27 08:13] VITALS: BP 111/78; PULSE 57
== END 2023-04-27 09:15 | disposition home or self-care (01) ==
LOC: ORWHC2ENDO 06:28
PROVIDERS: ATTEND Internal Medicine Gastroenterology
DX: Z12.11 Encounter for screening for malignant neoplasm of colon (principal); D12.4 Benign neoplasm of descending colon; D12.8 Benign neoplasm of rectum; K21.00 Gastro-esophageal reflux disease with esophagitis, without bleeding; I25.10 Atherosclerotic heart disease of native coronary artery without angina pectoris; G47.33 Obstructive sleep apnea (adult) (pediatric); E78.5 Hyperlipidemia, unspecified; I10 Essential (primary) hypertension; Z80.0 Family history of malignant neoplasm of digestive organs; Z85.038 Personal history of other malignant neoplasm of large intestine; Z88.5 Allergy status to narcotic agent; Z88.8 Allergy status to other drugs, medicaments and biological substances; Z91.018 Allergy to other foods; Z95.5 Presence of coronary angioplasty implant and graft; Z79.899 Other long term (current) drug therapy
CPT/HCPCS: 88305; 45380; 45385; 43235; J2405; J2704; 43239

== ENCOUNTER 2024-09-05 19:19 | Emergency (ER) | payer MEDICARE, OTHER ==
[2024-09-05 19:25] VITALS: TEMP 98.1
--- NOTE | 2024-09-05 19:43 | ED ---
General Adult HPI - General Chief complaint: Dizziness Stated complaint: numbness in both arms, dizzy, vomiting Time Seen by Provider: 09/05/24 19:26 Source: patient, RN notes reviewed, old records reviewed Mode of arrival: ambulatory Limitations: no limitations - History of Present Illness Initial comments: 64-year-old female states that she has been dizzy since she woke this morning. She states she had a minor fall with head injury. No loss conscious. She states also that both of her arms feel numb and heavy. She denies fever. Denies cough. She has had several episodes of vomiting. No central chest pain. No abdominal pain. She has chronic peripheral neuropathy in her legs and feet. - Related Data Home Medications Medication Instructions Recorded Confirmed Aspirin EC [Ecotrin Low Dose] 81 mg PO DAILY 08/14/18 09/05/24 Cetirizine HCl [Zyrtec] 10 mg PO BID 09/05/24 09/05/24 lisinopriL [Zestril] 10 mg PO HS 09/05/24 09/05/24 Previous Rx's Medication Instructions Recorded Metoprolol Tartrate [Lopressor] 25 mg PO BID #180 tab 08/16/18 Nitroglycerin Sl Tabs [Nitrostat] 0.4 mg SUBLINGUAL Q5M PRN #25 tab 08/16/18 Allergies Allergy/AdvReac Type Severity Reaction Status Date / Time morphine Allergy Rash/Hives, Verified 09/05/24 19:59 HALLUCINATIONS banana AdvReac Nausea & Verified 09/05/24 19:59 Vomiting [id number]-[id number] Reductase AdvReac SEVERE Verified 09/05/24 19:59 Inhibitor MUSCLE ACHES NARCOTICS Allergy Rash/Hives Uncoded 09/05/24 19:25 Review of Systems ROS Statement: Those systems with pertinent positive or pertinent negative responses have been documented in the HPI. ROS Other: All systems not noted in ROS Statement are negative. Past Medical History Past Medical History: Coronary Artery Disease (CAD), Cancer, Hyperlipidemia, Hypertension, Osteoarthritis (OA), Sleep Apnea/CPAP/BIPAP Additional Past Medical History / Comment(s): Uses C-pap at home. hx of ulcer. family hx of colon cancer, year round allergies, hx melanoma. hx kidney stones History of Any Multi-Drug Resistant Organisms: None Reported Past Surgical History: Cholecystectomy, Heart Catheterization With Stent, Hysterectomy, Joint Replacement, Orthopedic Surgery, Tonsillectomy, Tubal Ligation Additional Past Surgical History / Comment(s): Total R knee arthroplasty. SETH SCOPE OF KNEES; SETH THUMB SURG; NASAL/SINUS SURG; RECONSTRUCTION RT KNEE, 6 stents. melanoma removed , colonoscopy, egd Past Anesthesia/Blood Transfusion Reactions: Postoperative Nausea & Vomiting (PONV) Additional Past Anesthesia/Blood Transfusion Reaction / Comment(s): slow to wake up Date of Last Stent Placement:: 07/2018 Past Psychological History: No Psychological Hx Reported Smoking Status: Never smoker Past Alcohol Use History: None Reported Past Drug Use History: None Reported - Past Family History Mother Family Medical History: CVA/TIA Additional Family Medical History / Comment(s): Mother of "mini-strokes in brain" blot clot in brain Father Family Medical History: Cancer General Exam Limitations: no limitations General appearance: alert, in no apparent distress Head exam: Present: atraumatic, normocephalic Eye exam: Present: normal appearance, PERRL, EOMI. Absent: nystagmus Neck exam: Present: normal inspection. Absent: tenderness, meningismus Respiratory exam: Present: normal lung sounds bilaterally. Absent: respiratory distress, wheezes Cardiovascular Exam: Present: regular rate, normal rhythm GI/Abdominal exam: Present: soft. Absent: distended, tenderness, guarding Extremities exam: Present: normal inspection, normal capillary refill Neurological exam: Present: alert, oriented X3, CN II-XII intact, other (NIH of 0, normal [id number]-[id number] bilaterally, strength 5 out of 5 throughout). Absent: motor sensory deficit Skin exam: Present: warm, dry, intact Course Vital Signs 09/05/24 09/05/24 19:22 20:17 Temperature 98.1 F Pulse Rate 65 60 Respiratory 18 17 Rate Blood Pressure 158/92 142/75 O2 Sat by Pulse 95 96 Oximetry Medical Decision Making - Medical Decision Making Was pt. sent in by a medical professional or institution (, PA, ASSEMBLY LINE DRIVER, urgent care, hospital, or prison...) When possible be specific @ -No Did you speak to anyone other than the patient for history (EMS, parent, family, police, friend...)? What history was obtained from this source @ -No Did you review nursing and triage notes (agree or disagree)? Why? @ -I reviewed and agree with nursing and triage notes Were old charts reviewed (outside hosp., previous admission, EMS record, old EK G, old radiological studies, urgent care reports/EKG's, prison records)? Report findings @ -No old charts were reviewed Differential Dizziness: Benign paroxysmal positional Vertigo, Meniere's disease, otitis media, acoustic neuroma, vertebrobasilar insufficiency, cerebellar stroke, encephalitis, hypovolemic, arrhythmia, coronary artery syndrome, anemia, this is not meant to be an all-inclusive list EKG interpreted by me (3pts min.). @ -EKG: Sinus rhythm rate of 62, [place] interval 194, QRS duration 115, QTc 445 left anterior fascicular block X-rays interpreted by me (1pt min.). @None done CT interpreted by me (1pt min.). @CT brain negative for intracranial hemorrhage or mass effect U/S interpreted by me (1pt. min.). @ -None done What testing was considered but not performed or refused? (CT, X-rays, U/S, labs)? Why? @ -None What meds were considered but not given or refused? Why? @ -None Did you discuss the management of the patient with other professionals (professionals i.e. , PA, ASSEMBLY LINE DRIVER, lab, RT, psych nurse, case management social worker, escalator service mechanic, teacher, traffic control officer, case checker)? Give summary @ -No Was smoking cessation discussed for >3mins.? @ -No Was critical care preformed (if so, how long)? @ -No Were there social determinants of health that impacted care today? How? (Lata elessness, low income, unemployed, alcoholism, drug addiction, transportation, low edu. Level, literacy, decrease access to med. care, retirement, rehab)? @ -No Was there de-escalation of care discussed even if they declined (Discuss DNR or withdrawal of care, Hospice)? DNR status @ -No What co-morbidities impacted this encounter? (DM, HTN, Smoking, COPD, CAD, Cancer, CVA, ARF, Chemo, Hep., AIDS, mental health diagnosis, sleep apnea, morbid obesity)? @ -Hypertension diabetes Was patient admitted / discharged? Hospital course, mention meds given and route, prescriptions, significant lab abnormalities, going to OR and other pertinent info. @ 64-year-old female presenting with dizziness, vomiting which began earlier today. Patient well-appearing with stable vitals. She is not ataxic. There is no nystagmus. There is no focal neurologic findings. I did perform head CT which was negative for intracranial hemorrhage or mass effect. She has a mild leukocytosis otherwise normal CBC. CMP is unremarkable including normal electrolytes, normal kidney function, normal blood glucose. Negative troponin. Negative urinalysis. EKG is sinus rhythm with a rate of 62. Patient feeling better after symptomatic treatment no further vomiting. I did offer observation versus discharge with return parameters. Patient prefers discharge at this time. Undiagnosed new problem with uncertain prognosis? @ -No Drug Therapy requiring intensive monitoring for toxicity (Heparin, Nitro, Insulin, Cardizem)? @ -No Were any procedures done? @ -No Diagnosis/symptom? @ -[Vertigo Acute, or Chronic, or Acute on Chronic? @Acute Uncomplicated (without systemic symptoms) or Complicated (systemic symptoms)? @ -Default Side effects of treatment? @ -No Exacerbation, Progression, or Severe Exacerbation? @ -No Poses a threat to life or bodily function? How? (Chest pain, [place], [place], pneumonia, PE, COPD, DKA, ARF, appy, cholecystitis, CVA, Diverticulitis, Homicidal, Suicidal, threat to staff... and all critical care pts) @ -[Low risk at this time - Lab Data Result diagrams: 09/05/24 20:12 09/05/24 20:12 Lab Results 09/05/24 09/05/24 09/05/24 Range/Units 20:12 20:12 20:12 WBC 11.49 H (4.50-10.00) 10*3/uL RBC 5.22 H (4.10-5.20) 10*6/uL Hgb 15.2 H (12.0-15.0) g/dL Hct 45.7 (37.2-46.3) % MCV 87.5 (80.0-97.0) fL MCH 29.1 (27.0-32.0) pg MCHC 33.3 (32.0-37.0) g/dL Plt Count 230 (140-440) 10*3/uL MPV 9.2 L (9.5-12.2) fL Immature Gran % (Auto) 0.3 % Neutrophils % 54.4 % Lymphocytes % 35.1 % Monocytes % 6.8 % Eosinophils % 2.5 % Basophils % 0.9 % Immature Gran # 0.03 (0.00-0.04) 10*3/uL Neutrophils # 6.26 (1.80-7.70) 10*3/uL Lymphocytes # 4.03 (0.90-5.00) 10*3/uL Monocytes # 0.78 (0.20-1.00) 10*3/uL Eosinophils # 0.29 (0.04-0.35) 10*3/uL Basophils # 0.10 (0.00-0.10) 10*3/uL PT 10.9 (10.0-12.5) sec INR 1.0 (<1.2) APTT 20.9 L (22.0-30.0) sec Sodium 139 (137-145) mmol/L Potassium 3.7 (3.5-5.1) mmol/L Chloride 104 (98-107) mmol/L Carbon Dioxide 25 (22-30) mmol/L Anion Gap 10 mmol/L BUN 14 (7-17) mg/dL Creatinine 0.66 (0.52-1.04) mg/dL Est GFR (CKD-EPI)AfAm >90 (>60 ml/min/1.73 sqM) Est GFR (CKD-EPI)NonAf >90 (>60 ml/min/1.73 sqM) Glucose 106 H (74-99) mg/dL Calcium 9.7 (8.4-10.2) mg/dL Magnesium 1.9 (1.6-2.3) mg/dL Total Bilirubin 0.5 (0.2-1.3) mg/dL AST 25 (14-36) U/L ALT 38 H (4-34) U/L Alkaline Phosphatase 87 (38-126) U/L Troponin I (0.000-0.034) ng/mL Total Protein 7.9 (6.3-8.2) g/dL Albumin 4.7 (3.5-5.0) g/dL Urine Color Urine Appearance (Clear) Urine pH (5.0-8.0) Ur Specific Marble (1.001-1.035) Urine Protein (Negative) Urine Glucose (UA) (Negative) Urine Ketones (Negative) Urine Blood (Negative) Urine Nitrite (Negative) Urine Bilirubin (Negative) Urine Urobilinogen (<2.0) mg/dL Ur Leukocyte Esterase (Negative) 09/05/24 09/05/24 Range/Units 20:12 20:29 WBC (4.50-10.00) 10*3/uL RBC (4.10-5.20) 10*6/uL Hgb (12.0-15.0) g/dL Hct (37.2-46.3) % MCV (80.0-97.0) fL MCH (27.0-32.0) pg MCHC (32.0-37.0) g/dL Plt Count (140-440) 10*3/uL MPV (9.5-12.2) fL Immature Gran % (Auto) % Neutrophils % % Lymphocytes % % Monocytes % % Eosinophils % % Basophils % % Immature Gran # (0.00-0.04) 10*3/uL Neutrophils # (1.80-7.70) 10*3/uL Lymphocytes # (0.90-5.00) 10*3/uL Monocytes # (0.20-1.00) 10*3/uL Eosinophils # (0.04-0.35) 10*3/uL Basophils # (0.00-0.10) 10*3/uL PT (10.0-12.5) sec INR (<1.2) APTT (22.0-30.0) sec Sodium (137-145) mmol/L Potassium (3.5-5.1) mmol/L Chloride (98-107) mmol/L Carbon Dioxide (22-30) mmol/L Anion Gap mmol/L BUN (7-17) mg/dL Creatinine (0.52-1.04) mg/dL Est GFR (CKD-EPI)AfAm (>60 ml/min/1.73 sqM) Est GFR (CKD-EPI)NonAf (>60 ml/min/1.73 sqM) Glucose (74-99) mg/dL Calcium (8.4-10.2) mg/dL Magnesium (1.6-2.3) mg/dL Total Bilirubin (0.2-1.3) mg/dL AST (14-36) U/L ALT (4-34) U/L Alkaline Phosphatase (38-126) U/L Troponin I <0.012 (0.000-0.034) ng/mL Total Protein (6.3-8.2) g/dL Albumin (3.5-5.0) g/dL Urine Color Yellow Urine Appearance Clear (Clear) Urine pH 6.0 (5.0-8.0) Ur Specific Marble 1.023 (1.001-1.035) Urine Protein Negative (Negative) Urine Glucose (UA) Negative (Negative) Urine Ketones Negative (Negative) Urine Blood Negative (Negative) Urine Nitrite Negative (Negative) Urine Bilirubin Negative (Negative) Urine Urobilinogen <2.0 (<2.0) mg/dL Ur Leukocyte Esterase Negative (Negative) Disposition Clinical Impression: Vertigo Disposition: HOME SELF-CARE Condition: Fair Instructions (If sedation given, give patient instructions): Dizziness (ED) Is patient prescribed a controlled substance at d/c from ED?: No Referrals: Mick Camejo MD [Primary Care Provider] - 1-2 days Time of Disposition: 21:19
[2024-09-05 20:19] LABS: Basophils % (A) 0.9 %; Eosinophils # (A) 0.29 10*3/uL (0.04-0.35); Eosinophils % (A) 2.5 %; HCT 45.7 % (37.2-46.3); HGB 15.2 g/dL (12.0-15.0); Lymphocytes # (A) 4.03 10*3/uL (0.90-5.00); Lymphocytes % (A) 35.1 %; MCH 29.1 pg (27.0-32.0); MCHC 33.3 g/dL (32.0-37.0); MCV 87.5 fL (80.0-97.0); Mean Platelet Volume 9.2 fL (9.5-12.2); Monocytes # (A) 0.78 10*3/uL (0.20-1.00); Monocytes % (A) 6.8 %; Neutrophils # (A) 6.26 10*3/uL (1.80-7.70); Neutrophils % (A) 54.4 %; Platelet Count 230 10*3/uL (140-440); RBC 5.22 10*6/uL (4.10-5.20); RDW 13.4 % (11.5-14.5); WBC 11.49 10*3/uL (4.50-10.00)
[2024-09-05 20:24] VITALS: PULSE 60; RESP 17
[2024-09-05] MEDS: SODIUM CHLORIDE 0.9% 1,000 ML IV STA (20:24)
[2024-09-05] MEDS: ONDANSETRON 4 MG/2 ML VIAL IVP STA (20:25)
[2024-09-05] MEDS: MECLIZINE 12.5 MG TAB PO STA (20:26)
--- NOTE | 2024-09-05 20:31 | CT ---
EXAMINATION TYPE: CT brain wo con DATE OF EXAM: 09/05/2024 7:57 PM COMPARISON: 05/04/2019 CLINICAL INDICATION: Female, 64 years old with history of Dizzy, head injury, dizzy, numbness in both arms, vomiting since 0500 this morning TECHNIQUE: CT of the brain is performed utilizing 3 mm thick sections through the posterior fossa and 3 mm thick sections through the remaining calvarium. Study is performed within 24 hours of arrival to the hospital. Contrast used: mL of , (none if empty) CT DLP: 1156.7 mGycm, Automated exposure control for dose reduction was used. FINDINGS: No abnormal hyperdensity is present to suggest an acute intracranial hemorrhage. No mass lesion is evident. No acute infarcts are evident. Ventricles and sulci are appropriate for the patient age. Paranasal sinuses and mastoid air cells within the [id number] are clear. IMPRESSION: 1. No acute intracranial process. Follow up MRI can be performed as clinically indicated. [facility], , 09/05/2024 8:29 PM
[2024-09-05 20:34] LABS: Appearance,Urine Clear (Clear); Bilirubin,Urine Negative (Negative); Blood,Urine Negative (Negative); Color,Urine Yellow; Glucose,Urine (UA) Negative (Negative); Ketones,Urine Negative (Negative); Leukocyte Esterase,Urine Negative (Negative); Nitrite,Urine Negative (Negative); Protein,Urine Negative (Negative); Specific Gravity,Urine 1.023 (1.001-1.035); Urobilinogen,Urine <2.0 mg/dL (<2.0)
[2024-09-05 20:38] LABS: Partial Thromboplastin Time 20.9 sec (22.0-30.0); Prothrombin Time 10.9 sec (10.0-12.5)
[2024-09-05 20:39] LABS: ALT 38 U/L (4-34); AST 25 U/L (14-36); African American GFR (CKD) >90 (>60 ml/min/1.73 sqM); Albumin 4.7 g/dL (3.5-5.0); Alkaline Phosphatase 87 U/L (38-126); Anion Gap 10 mmol/L; Blood Urea Nitrogen 14 mg/dL (7-17); Calcium 9.7 mg/dL (8.4-10.2); Carbon Dioxide 25 mmol/L (22-30); Chloride 104 mmol/L (98-107); Glucose 106 mg/dL (74-99); Magnesium 1.9 mg/dL (1.6-2.3); Non-African American GFR(CKD) >90 (>60 ml/min/1.73 sqM); Potassium 3.7 mmol/L (3.5-5.1); Sodium 139 mmol/L (137-145); Total Bilirubin 0.5 mg/dL (0.2-1.3); Total Protein 7.9 g/dL (6.3-8.2)
[2024-09-05 21:30] VITALS: BP 135/82
== END 2024-09-05 21:30 | disposition home or self-care (01) ==
LOC: EC 19:19
DX: R42 Dizziness and giddiness (principal); I11.9 Hypertensive heart disease without heart failure; I25.10 Atherosclerotic heart disease of native coronary artery without angina pectoris; E11.9 Type 2 diabetes mellitus without complications; Z91.018 Allergy to other foods; Z88.5 Allergy status to narcotic agent; Z88.8 Allergy status to other drugs, medicaments and biological substances
CPT/HCPCS: 36415; 93005; 80053; 83735; 84484; 85025; 85610; 85730; 81003; 70450; 99284; 96374; 96361; J2405